=== PATIENT | male | born 1955 | race Caucasian/White ===

== ENCOUNTER 2019-09-06 05:14 | Inpatient (IN) | payer MEDICAID, OTHER ==
[2019-09-06] VITALS (51 sets, daily range): BP systolic 79–135; BP diastolic 34–88
[~2019-09-06] VITALS: Ht 190.5 cm; Wt 117.5 kg
[2019-09-06] MEDS ORDERED: SUCCINYLCHOLINE CHLORIDE 20 MG/ML 10ML VIAL IV ONE ×4 (05:35→07:45)
[2019-09-06] MEDS ORDERED: ETOMIDATE (2MG/ML) 20ML VIAL IV ONE ×2 (05:35→05:45)
[2019-09-06] MEDS ORDERED: MIDAZOLAM DRIP 50 mg/50mL 50 ML IV ONE (05:45)
[2019-09-06] MEDS ORDERED: VANCOMYCIN PER PHARMACY 1,000 MG IV SCH (06:00)
[2019-09-06] MEDS ORDERED: SODIUM CHLORIDE 0.9% 500 ML IV ONE (06:00)
[2019-09-06] MEDS: PIPERACILLIN-TAZOB 3.375GM 100 ML IV SCH ×3 (06:45→17:35)
[2019-09-06] MEDS: MIDAZOLAM DRIP 50 mg/50mL 50 ML IV SCH ×5 (06:47→20:00)
[2019-09-06] MEDS ORDERED: FUROSEMIDE 40 MG/4 ML VIAL IV ONE ×2 (07:15→12:00)
[2019-09-06] MEDS ORDERED: NOREPINEPHRINE 8 MG/250ML KIT 250 ML IV ONE (07:22)
[2019-09-06 07:41] LABS: Urine Bacteria NONE SEEN /hpf (None Seen); Urine Blood Negative /uL (Negative); Urine Hyaline Cast MANY /lpf (0 - 2); Urine Mucus FEW (None Seen); Urine Specific Gravity 1.024 (1.001-1.035); Urine WBC 6 /hpf (0 - 3)
[2019-09-06] MEDS: PROPOFOL 100 ML IV SCH ×4 (07:54→20:00)
[2019-09-06] MEDS: NOREPINEPHRINE 8 MG/250ML KIT 250 ML IV SCH ×2 (07:55→16:43)
[2019-09-06 08:15] LABS: Lactic Acid w/Reflex 6.5 mmol/L (0.4-2.0)
[2019-09-06] MEDS ORDERED: VANCOMYCIN PER PHARMACY 0 MG IV SCH (08:45)
[2019-09-06] MEDS ORDERED: MORPHINE SULF INJ 2 MG/ML SYRINGE 1ML IV PRN (08:45)
[2019-09-06] MEDS ORDERED: NITROGLYCERIN 0.4 MG SL TAB SL PRN (08:45)
[2019-09-06] MEDS ORDERED: methylPREDNISolone SOD SUCC 125 MG/2 ML VL IV ONE (09:00)
[2019-09-06] MEDS ORDERED: VANCOMYCIN 1,250 MG in D5W 5% 250 ML IV ONE ×2 (09:00→10:00)
[2019-09-06 09:01] LABS: White Blood Cell 9.8 10^3/uL (4.4-10.8)
[2019-09-06 09:03] LABS: Hematocrit 42.5 % (41.0-53.0); Hemoglobin 13.9 g/dL (13.5-17.5); Mean Corpuscular Hemoglobin 36.3 pg (28.0-32.0); Mean Corpuscular Hgb Conc. 32.8 g/dL (32.0-36.0); Mean Corpuscular Volume 110.9 fL (80.0-100.0); Platelet Count (auto) 112 10^3/uL (140-450); Red Blood Cells 3.84 10^6/uL (4.5-5.90); Red Cell Distribution Width 13.4 % (11.8-14.3)
[2019-09-06 09:12] LABS: Basophils % (manual) 0 (0.0-2.0); Blast Cells 0; Eosinophils % (manual) 0 (0-7); Metamyelocytes % 0; Myelocytes % 0; Promyelocytes % 0; Reactive Lymphocytes 0
[2019-09-06] MEDS: FAMOTIDINE (10MG/ML) 2ML VL IV SCH ×2 (09:21→22:44)
[2019-09-06 09:23] LABS: Calcium 7.4 mg/dL (8.5-10.1); Potassium 5.2 mmol/L (3.5-5.1)
[2019-09-06 09:28] LABS: BUN/Creatinine Ratio 5.6; Bilirubin, Total 3.5 mg/dL (0.2-1.0); Total Protein 6.3 g/dL (6.4-8.2)
[2019-09-06 09:36] LABS: Band Neutrophils % (manual) 9; Lymphocytes % (manual) 8 (10.0-50.0); Monocytes % (manual) 4 (0-12)
[2019-09-06 09:50] LABS: INR 2.03 (0.9-1.15)
[2019-09-06] MEDS: IPRATROPIUM BROM 0.5 MG/2.5ML INH SOL NEB SCH ×4 (10:00→22:10)
[2019-09-06] MEDS ORDERED: CALCIUM GLUC 4.65meq/50ml D5AE 50 ML IV ONE (10:00)
[2019-09-06] MEDS ORDERED: DEXTROSE (50%) 50ML SYRG IV ONE (10:00)
[2019-09-06] MEDS ORDERED: SODIUM ZIRCONIUM CYCL 10 GM PAK PO ONE (10:00)
[2019-09-06] MEDS ORDERED: ALBUTEROL SULF 2.5 MG/0.5ML(0.5%) NEB SOLN NEB ONE (10:00)
[2019-09-06] MEDS ORDERED: InsuLIN REG 1unit/0.01ml Soln (100units/ml) IV ONE (10:00)
[2019-09-06] MEDS: ALBUTEROL SULF 2.5 MG/0.5ML(0.5%) NEB SOLN NEB SCH ×4 (10:00→22:10)
[2019-09-06] MEDS: ENOXAPARIN SOD 40 MG/0.4 ML SYRINGE SC SCH (10:02)
[2019-09-06] MEDS ORDERED: IOHEXOL 350 MG/ML 100ML IJ ONE (10:06)
[2019-09-06 10:59] LABS: Lactic Acid w/Reflex 4.5 mmol/L (0.4-2.0)
[2019-09-06] MEDS ORDERED: IPRATROPIUM BROM 0.5 MG/2.5ML INH SOL NEB SCH (12:00)
[2019-09-06] MEDS ORDERED: ALBUTEROL SULF 2.5 MG/0.5ML(0.5%) NEB SOLN NEB SCH (12:00)
[2019-09-06] MEDS ORDERED: PIPERACILLIN-TAZOB 3.375GM 100 ML IV SCH (12:00)
--- NOTE | 2019-09-06 12:05 | NUR ---
DR KAPOOR AT BEDSIDE: INCREASE PEEP TO 10 AND MONITOR END C02.
--- NOTE | 2019-09-06 12:15 | NUR ---
Admit to ICU from ER on vent NEO MAYA admitted to ICU via gurney on bus monitor, intubated and being bagged by Respiratory Therapist. Patient transfered to bed, connected to mechanical ventilator by therapist, PONCHO at bedside. Patient connected to ICU monitoring, weighed by bedscale, unresponsive unable to orient to Shaista frye RN, unit, ventilator and sedation. NOTE: Report received from ABRAM Bunch,. See Interventions for further patient details.
--- NOTE | 2019-09-06 12:30 | NUR ---
Trop and MRSA swab sent to lab.
--- NOTE | 2019-09-06 14:18 | NUR ---
Consulted Dr. Walker for A-line placement.
--- NOTE | 2019-09-06 14:28 | NUR ---
Urine toxicology ordered and sent to lab.
[2019-09-06 15:06] LABS: Amphetamine Screen, Urine NEGATIVE (NEGATIVE); Barbiturate Scree,Urine NEGATIVE (NEGATIVE); Benzodiazephine Screen, Urine NEGATIVE (NEGATIVE); Cannabinoid Screen, Urine POSITIVE (NEGATIVE); Cocaine Screen, Urine NEGATIVE (NEGATIVE)
[2019-09-06 15:13] LABS: Opiate Scree,Urine NEGATIVE (NEGATIVE); Phencyclidine Screen, Urine NEGATIVE (NEGATIVE)
--- NOTE | 2019-09-06 18:55 | NUR ---
Endorsed care to ABRAM Rick.
--- NOTE | 2019-09-06 20:00 | NUR ---
ADMITTED FROM HOME TO ER. INTUBATED IN FIELD. FOUND DOWN AT HOME BY FAMILY. WAS HYPOTHERMIC AND LOW SATURATION. LIVES ON THE SAME PROPERTY HIS SON. MARTHA. NO GAG OR COUGH. ORAL CARE. NOTHING SUCTIONED FROM THE ETT. ORALLY INTUBATED. ORAL NGT. ETT TO VENTILATOR. LUNGS CLEAR. ON 100% FIO2. O2 SAT IS 93%. TEMP 97.6 ORALLY. SHEET AND BLANKET ON. DOES NOT WITHDRAW TO PAINFUL STIMULI. OBESE. ABDOMEN VERY LARGE, ROUND AND SLIGHTLY FIRM. MENEZES IN PLACE DRAINING CLEAR YELLOW LIQUID TO DOWN DRAIN BAG. MOISTURE ASSOCIATED DERMATITIS IN GROIN FOLDS AND GLUTEAL CLEFT. BILATERAL LEG EDEMA. REDNESS AND HYPERPIGMENTATION ON LEGS. RIGHT MID CALF IS AN OPEN DRAINING WOUND. NO SCDS. PULSES WEAK AND PALPABLE. ALL EXTREMITIES ARE WARM. ALSO BACK HAS A RED HARD CELLULITIC LOOK OVER APPROXIMATELY 60-70% OF HIS BACK. PREVENTATIVE OPTIFOAM ON COCCYX.
--- NOTE | 2019-09-06 21:43 | NUR ---
WOUND CULTURE DONE OF THE SMALL OPEN WOUND ON THE RIGHT CALF. AREA CLEANED WITH CHLOROPREP AND DRESSED WITH A FOAM DRESSING.
--- NOTE | 2019-09-06 22:00 | NUR ---
TIP OF PENIS IS RED. BOTH GROINS ARE RED. CLEANED WITH CHG WIPES AND PLACED A PILLOW CASE IN GROIN FOLDS. PANUS IS ALSO RED. CLEANED AND DRIED. PILLOWCASE PLACED IN THE PANUS FOLD. ABDOMEN IS VERY RED AND HARD ON THE RIGHT SIDE.
[2019-09-07] VITALS (100 sets, daily range): BP systolic 90–132; BP diastolic 35–87
--- NOTE | 2019-09-07 | NUR ---
REPOSITIONED. NSR WITHOUT ECTOPY. LUNGS CLEAR. MOVED THE PULSE OX FROM THE FINGER TO THE EAR AND IT WENT FROM 90 TO 96%. ORAL CARE. NGT DRAINING RILEY LIQUID IN SMALL AMOUNTS. MENEZES DRAINING RILEY LIQUID TO DOWN DRAIN BAG. TEMP ONLY 97.6 . ADDED 2 BLANKETS. DECREASED THE LEVOPHED TO 3 MCG. DECREASED THE DIPRIVAN. NO MOVEMENT OF EXTREMITIES. NO GAG OR COUGH.
[2019-09-07] MEDS: PIPERACILLIN-TAZOB 3.375GM 100 ML IV SCH ×5 (00:02→23:45)
[2019-09-07] MEDS: MIDAZOLAM DRIP 50 mg/50mL 50 ML IV SCH ×2 (00:03→12:36)
--- NOTE | 2019-09-07 01:23 | NUR ---
DIFFICULTY GETTING AN ORAL OR AXILLARY TEMP. WALLY GALVAN STARTED ON MEDIUM HEAT.
--- NOTE | 2019-09-07 02:01 | NUR ---
ORAL TEMP REGISTERING NOW AT 97.5. NSR WITHOUT ECTOPY. SBP 100 ON LEVOPHED AT 3 MCG/MIN. VERSED DECREASED. STILL NO COUGH OR GAG.
[2019-09-07] MEDS: PROPOFOL 100 ML IV SCH ×3 (02:08→17:52)
[2019-09-07] MEDS: ALBUTEROL SULF 2.5 MG/0.5ML(0.5%) NEB SOLN NEB SCH ×6 (02:10→22:19)
[2019-09-07] MEDS: IPRATROPIUM BROM 0.5 MG/2.5ML INH SOL NEB SCH ×6 (02:10→22:19)
--- NOTE | 2019-09-07 04:00 | NUR ---
WALLY GALVAN ON. TEMP SLOWLY COMING UP. NO GAG OR COUGH. DECREASING VERSED. LEVOPHED IS TITRATED DOWN FAR I CAN GO. NSR WITHOUT ECTOPY.
[2019-09-07 04:30] LABS: Basophils # (auto) 0 uL; Basophils % (auto) 0.1 % (0.0-2.0); Eosinophils # (auto) 0 uL; Hemoglobin 13.9 g/dL (13.5-17.5); Lymphocytes # (auto) 0.3 uL; Lymphocytes % (auto) 4.1 % (10.0-50.0); Mean Corpuscular Hemoglobin 37.1 pg (28.0-32.0); Mean Corpuscular Hgb Conc. 34.9 g/dL (32.0-36.0); Mean Corpuscular Volume 106.3 fL (80.0-100.0); Monocytes # (auto) 0.5 uL; Monocytes % (auto) 5.8 % (0.0-12.0); Neutrophils # (auto) 7.6 uL; Nucleated Red Blood Cells % 0.1 %; Platelet Count (auto) 87 10^3/uL (140-450); Red Blood Cells 3.76 10^6/uL (4.5-5.90); Red Cell Distribution Width 12.9 % (11.8-14.3); White Blood Cell 8.4 10^3/uL (4.4-10.8)
[2019-09-07 04:45] LABS: INR 2.23 (0.9-1.15); Partial Thromboplastin Time 51.3 sec (23.64-32.05)
[2019-09-07 04:51] LABS: Albumin 1.8 g/dL (3.4-5.0); Anion Gap 7 (5-15); Aspartate Aminotransferase 41 U/L (15-37); Blood Urea Nitrogen 12 mg/dL (7-18); Calcium 7.6 mg/dL (8.5-10.1); Carbon Dioxide 30 mmol/L (21-32); Chloride 87 mmol/L (98-107); Glucose 149 mg/dL (74-106); Magnesium 1.6 mg/dL (1.6-2.6); Potassium 4.3 mmol/L (3.5-5.1); Sodium 124 mmol/L (136-145)
[2019-09-07 04:56] LABS: Alanine Aminotransferase 30 U/L (16-61); Alkaline Phosphatase 83 U/L (45-117); BUN/Creatinine Ratio 9.8; Bilirubin, Total 2.2 mg/dL (0.2-1.0); Cholesterol < 50 mg/dL (< 200); GFR African American 76 mL/min; GFR Non-African American 63 mL/min; HDL Cholesterol 11 mg/dL (40-59); LDL Cholesterol 37 mg/dL (< 100); Total Protein 5.4 g/dL (6.4-8.2); Triglycerides 71 mg/dL (< 150)
--- NOTE | 2019-09-07 05:41 | NUR ---
TEMP 98.3. WALLY GALVAN TEMP TURNED DOWN TO MEDIUM AND LEFT ON.
--- NOTE | 2019-09-07 06:29 | NUR ---
TEMP 98.3 ORALLY. WALLY GALVAN ON. REPOSITIONED TO THE LEFT SIDE. SBP STABLE. DR ZAMARRIPA HERE TO INSERT ARTERIAL LINE.
--- NOTE | 2019-09-07 07:35 | NUR ---
OPENING SHIFT NOTE Report received from Merline VALVERDE, care assumed. Patient observed in bed. No distress or pain noted at this time. Diprivan and Versed used for sedation. Afebrile, rectal temperature in place for continuos monitoring. pupils are equal and reactive to light. Cough and gag noted. Pulses palpable radial and pedal bilaterally. Pitting edema noted. Vital signs stable. Patient on low dose levophed gtt for hemodynamic stability. Intubated on ventilator, lungs coarse anteriorly. Tolerating ventilation at this time with oxygen saturation 99%. Thick creamy red sputum noted during ET tube suctioning. Ventilator connected to red outlet with Ambu bag at bedside. Abdomen is large, soft, non-tender. Bowel sounds hypoactive. Poe catheter present, patent, and secured below bladder. See skin/wound assessment performed. Partial bed bath and linen change complete. SCD placed on left lower extremity. Bilateral heels off loaded on pillows. Bed locked in lowest position, alarms in place. Will continue to monitor.
--- NOTE | 2019-09-07 08:50 | NUR ---
VISITOR Patient Daughter at bedside. Updated on plan of care. All questions and concerns addressed.
--- NOTE | 2019-09-07 09:00 | NUR ---
Respiratory note: SWITCHED PATIENT OVER TO HEATED CIRCUIT ON PREVIOUS SETTINGS WITHOUT ANY ADVERSE REACTIONS. WILL CONTINUE TO MONITOR PATIENT.
--- NOTE | 2019-09-07 10:00 | NUR ---
WOUND CARE Wound care nurses at bedside for skin assessment.
[2019-09-07] MEDS: ENOXAPARIN SOD 40 MG/0.4 ML SYRINGE SC SCH (10:08)
[2019-09-07] MEDS: FAMOTIDINE (10MG/ML) 2ML VL IV SCH ×2 (10:08→22:12)
--- NOTE | 2019-09-07 10:20 | NUR ---
MD VISIT at bedside assessing patient. MD made ventilator changes, RT notified. MD reviewing chart. Orders received. Will continue to monitor.
--- NOTE | 2019-09-07 10:44 | NUR ---
Respiratory note: VENT SETTINGS CHANGED PER DR. KAPOOR. VENT SETTINGS ARE NOW AC 20/550/+12/80%. PATIENT IS TOLERATING CHANGE WELL. WILL DRAW ABG IN ONE HOUR. WILL CONTINUE TO MONITOR. ABRAM ANDERS IS AWARE OF CHANGES.
--- NOTE | 2019-09-07 11:05 | NUR ---
MD VISIT at bedside for Nephrology consult. Orders received.
[2019-09-07] MEDS ORDERED: SODIUM CHLORIDE 0.9% 1,000 ML IV SCH (11:15)
--- NOTE | 2019-09-07 12:12 | NUR ---
Respiratory note: VENTILATOR CHANGES MADE PER DR. KAPOOR. DECREASED RR TO 16, PATIENT IS TOLERATING CHANGES WELL. ABG TO FOLLOW IN 2 HOURS, ABRAM ANDERS IS AWARE.
--- NOTE | 2019-09-07 12:34 | NUR ---
LEVOPHED GTT Levophed gtt titrated off, blood pressure hemodynamically stable at this time. Will continue to monitor.
--- NOTE | 2019-09-07 12:40 | NUR ---
MD VISIT at bedside assessing patient. MD updated on ventilator changes, IV medications, and plan of care. MD reviewing chart.
[2019-09-07] MEDS ORDERED: THIAMINE 100mg/ml INJ (200mg/2ml VIAL) IV ONE (13:30)
--- NOTE | 2019-09-07 13:51 | NUR ---
Assessment Pt is a 63 yr old intubated male. Pt's granddaughter, Sarah, was bedside and answered questions on pt's behalf. Pt's son, Arie, is his emergency contact at [phone]. Prior to admit, pt lived alone but on the same property of his son. Prior to admit, pt was ambulatory, and was independent with ADL's, cooking and cleaning. Granddaughter was unsure of pt's income source or whether the pt had an advanced directive on file. Pt's nurse stated that pt was a . No needs assessed currently. SW will further assess for needs closer to d/c. Addendum: 09/07/19 at 1357 by SHADIA BEATTY Amended: Links added.
--- NOTE | 2019-09-07 15:24 | NUR ---
FAMILY UPDATE Patients son-in-law called for update.
[2019-09-07] MEDS: methylPREDNISolone SOD SUCC 40 MG/ML VL IV SCH ×2 (15:30→22:12)
--- NOTE | 2019-09-07 16:00 | NUR ---
ROUNDING NOTE Patient resting, no distress noted. Oral care performed. Vitals stable. Will continue to monitor.
[2019-09-07] MEDS: VANCOMYCIN 1,500 MG in D5W 5% 250 ML IV SCH (16:02)
[2019-09-07] MEDS ORDERED: CARVEDILOL 3.125 MG TAB GT ONE (17:15)
[2019-09-07] MEDS ORDERED: FUROSEMIDE 20 MG/2 ML VIAL IV ONE (17:15)
--- NOTE | 2019-09-07 18:14 | NUR ---
VISITOR Patient son Arie at bedside. Updated on plan of care.
[2019-09-07 18:38] LABS: BUN/Creatinine Ratio 11.5; Calcium 7.5 mg/dL (8.5-10.1); Potassium 4.9 mmol/L (3.5-5.1)
--- NOTE | 2019-09-07 20:15 | NUR ---
OPENING NOTE: INTUBATED AND ON SEDATION. UNRESPONSIVE. ABSENT GAG AND COUGH. NSR, HR 60s. SBP 90s, LARGEST BP CUFF ON BUT FITS WITHIN PARAMETERS. 8.0 ETT, 27 AT THE LIP. LS COARSE WITH INSPIRATORY AND EXPIRATORY WHEEZE THROUGHOUT. CREAMY ORAL AND ETT SECRETIONS. SpO2 > 88% ON CURRENT VENT SETTINGS. ABD ROUND, OBESE, AND SOFT. HYPOACTIVE BS. UNKNOWN LBM. OGT TO LIS, +AIR BOLUS, THICK BILIOUS OUTPUT. MENEZES PATENT AND INTACT, DRAINING LIGHT RILEY URINE, SCROTUM EDEMATOUS. ERYTHEMA NOTED FROM RIGHT FOOT ALL THE WAY UP TO RIGHT BREAST AND ACROSS ABDOMEN ALSO WITH CONTACT DERMATITIS RELATED TO MOISTURE IN INTERTRIGINOUS AREAS OF PANNUS, THIGHS, AND GROIN. SEE WOUND AND SKIN FLOWSHEET . 2+ PITTING EDEMA,GENERALIZED EDEMA. BILATERAL AC 18 G PIV, CDI, AND PATENT WITH BLOOD RETURN. 20 G PIV TO LEFT HAND, CDI, AND PATENT WITH BLOOD RETURN. TLC TO LEFT SC, CDI, AND PATENT WITH BLOOD RETURN. NO FAMILY PRESENT AT THIS TIME. REINFORCED POC. MAINTAINED PATIENT SAFETY: BED LOCKED AND IN THE LOWEST POSITION, FREQUENT VISUAL CHECKS. WILL CONT CARE.
--- NOTE | 2019-09-07 21:00 | NUR ---
SEDATION VACATION: WEANING SEDATION SLOWLY. DO NOT WANT ABRUPTLY AROUSE PATIENT DUE TO 12+ PEEP SETTING. WILL REASSESS APPROPRIATENESS OF SEDATION. Addendum: 09/07/19 at 2122 by Caitlin Thurman RN RN Amended: Links added.
[2019-09-07] MEDS ORDERED: FUROSEMIDE 20 MG/2 ML VIAL IV SCH (22:00)
[2019-09-07] MEDS: CARVEDILOL 3.125 MG TAB GT SCH (22:12)
--- NOTE | 2019-09-07 22:41 | NUR ---
DR. IRVIN CALLED CLARIFIER OPERATOR HELPER - ORDERS FOR 60 MG LASIX IN ADDITION TO 20 MG LASIX GIVEN BY DAY SHIFT
[2019-09-08] VITALS (84 sets, daily range): BP systolic 97–129; BP diastolic 3–79
[2019-09-08] MEDS: IPRATROPIUM BROM 0.5 MG/2.5ML INH SOL NEB SCH ×6 (02:04→22:07)
[2019-09-08] MEDS: ALBUTEROL SULF 2.5 MG/0.5ML(0.5%) NEB SOLN NEB SCH ×6 (02:04→22:07)
[2019-09-08] MEDS: VANCOMYCIN 1,500 MG in D5W 5% 250 ML IV SCH ×2 (03:48→16:45)
[2019-09-08 04:31] LABS: Basophils # (auto) 0 uL; Basophils % (auto) 0.3 % (0.0-2.0); Eosinophils # (auto) 0 uL; Monocytes # (auto) 0.4 uL
--- NOTE | 2019-09-08 04:32 | NUR ---
BED BATH WITH CHG WIPES, IKE CARE, MENEZES CARE, ORAL CARE, HAIR CARE, AND FULL LINEN CHANGE COMPLETED
[2019-09-08 04:34] LABS: Hematocrit 39.4 % (41.0-53.0); Hemoglobin 13.6 g/dL (13.5-17.5); Lymphocytes # (auto) 0.3 uL; Lymphocytes % (auto) 3.9 % (10.0-50.0); Mean Corpuscular Hemoglobin 36.7 pg (28.0-32.0); Mean Corpuscular Hgb Conc. 34.6 g/dL (32.0-36.0); Mean Corpuscular Volume 106.2 fL (80.0-100.0); Monocytes % (auto) 5.9 % (0.0-12.0); Neutrophils # (auto) 5.9 uL; Neutrophils % (auto) 89.9 % (37.0-80.0); Platelet Count (auto) 73 10^3/uL (140-450); Red Blood Cells 3.71 10^6/uL (4.5-5.90); Red Cell Distribution Width 13.4 % (11.8-14.3); White Blood Cell 6.6 10^3/uL (4.4-10.8)
[2019-09-08 04:37] LABS: INR 1.72 (0.9-1.15)
[2019-09-08 04:52] LABS: Albumin 1.8 g/dL (3.4-5.0); Calcium 7.4 mg/dL (8.5-10.1); Magnesium 1.8 mg/dL (1.6-2.6); Potassium 4.6 mmol/L (3.5-5.1)
[2019-09-08 05:01] LABS: Bilirubin, Total 1.8 mg/dL (0.2-1.0); Total Protein 5.7 g/dL (6.4-8.2)
--- NOTE | 2019-09-08 05:23 | NUR ---
TEMP DOWN TO 97f RECTALLY - PLACED PETROS HUGGER
--- NOTE | 2019-09-08 06:00 | NUR ---
TEMP NOW 97.7f RECTALLY
[2019-09-08] MEDS: PIPERACILLIN-TAZOB 3.375GM 100 ML IV SCH ×3 (06:32→18:56)
[2019-09-08] MEDS: methylPREDNISolone SOD SUCC 40 MG/ML VL IV SCH ×2 (06:32→22:02)
[2019-09-08] MEDS: NOREPINEPHRINE 8 MG/250ML KIT 250 ML IV SCH (06:32)
--- NOTE | 2019-09-08 07:42 | NUR ---
REPORT AND CARE ENDORSED TO ABRAM ANDREWS
--- NOTE | 2019-09-08 07:42 | NUR ---
REPORT REPORT RECEIVED FROM MARIO RNELIF. BEDSIDE CHECK DONE.
--- NOTE | 2019-09-08 08:01 | NUR ---
ASSESSMENT PT LAYING IN BED WITH EYES CLOSED, SEDATED WHILE ON THE VENTILATOR. VENT SETTINS OF : 8 FR ETT/27 AT THE LIP, AC 16, TV 550, 60% FIO2 AND PEEP OF 12. LUNGS CLEAR THROUGHOUT. O2 SAT OF 92% AND SAT OF 92%. TELE SR 66 WITH INVERTED T WAVE IN LEAD AVR AND ELEVATED ST IN LEAD V. WEAK PALPABLE PULSES TO ALL EXTREMITIES. SCD TO LEFT LEG AND OPTIFOAM DRESSING TO RIGHT GAO OVER SEALED SKIN TEAR. +2 PITTING EDEMA NOTED TO BOTH HANDS. ABD SOFT WITH HYPOACTIVE BOWEL SOUNDS. OGT WITH PLACEMENT VERIFIED BY AUSCULTATION AND CONNECTED TO LIS WITH YELLOWISH BROWN CLEAR FLUID DRAINING. LAST BM WAS PRIOR TO ADMISSION AND UNKNOWN. MENEZES CATHETER DRAINING CLEAR YELLOW URINE. CONTACT DERMATITIS NOTED TO ABD PANNUS AND ANTIFUNGAL CREAM AND PILLOWCASE APPLIED AFTER CLEANED WITH SOAP AND WATER. CALLOUSES NOTED TO BOTH FEET AND ELBOWS. OOZING NOTED FROM RIGHT WRIST AND OPTIFOAM DRESSING IN PLACE. PT WITH SL X2 TO THE LAC/RAC, PLACED 09/07. LSC TLC WITH SITE BENIGN AND PLACED /. TURNED FOR COMFORT. CONTINUE TO MONITOR.
--- NOTE | 2019-09-08 08:30 | NUR ---
DR KAPOOR AT THE BEDSIDE FOR BRONCHOSCOPY.
[2019-09-08] MEDS ORDERED: LIDOCAINE 2%HCL (LOCAL ANESTH.) INJ 20ML MDV ONE (08:46)
[2019-09-08] MEDS ORDERED: LIDOCAINE HCL 2% TOP JELLY 5ML TOP ONE (08:47)
[2019-09-08] MEDS ORDERED: EPINEPHrine HCL 1 MG/1 ML AMP ONE (08:47)
[2019-09-08] MEDS ORDERED: SODIUM CHLORIDE LOCK 10 ML ONE (08:47)
[2019-09-08] MEDS ORDERED: MIDAZOLAM HCL 5 MG/ML-1ML VIAL ONE (08:48)
[2019-09-08] MEDS ORDERED: fentaNYL CITRATE 100 MCG/2 ML VL ONE (08:48)
--- NOTE | 2019-09-08 09:00 | NUR ---
SEDATION VACATION PT OFF ALL SEDATION SINCE MATHEMATICAL TECHNICIAN. Addendum: 09/08/19 at 1726 by Callie Abraham RN Amended: Links added.
[2019-09-08] MEDS ORDERED: ACETYLCYSTEINE 10 %(100MG/ML) SOL 4ML ONE (09:12)
[2019-09-08] MEDS ORDERED: ACETYLCYSTEINE 20%(200MG/ML) SOL 4ML ONE (09:12)
--- NOTE | 2019-09-08 09:42 | NUR ---
BRONCHOSCOPY COMPLETED AND PT FOUND TO "HAVE GREENISH YELLOW SECRETIONS FROM TRACHEA AND LEFT AND RIGHT MAIN STEM BRONCHUS ONWARD". HE CALLED AND SPOKE WITH THE PT'S SON, VERONICA, TO UPDATE HIM. PT CURRENTLY ON 100% FIO2. CONTINUE TO MONITOR.
[2019-09-08] MEDS: CARVEDILOL 3.125 MG TAB GT SCH ×2 (10:00→22:00)
[2019-09-08] MEDS ORDERED: FUROSEMIDE 20 MG/2 ML VIAL IV SCH (10:00)
[2019-09-08] MEDS: THIAMINE 100mg/ml INJ (200mg/2ml VIAL) IV SCH (10:17)
[2019-09-08] MEDS: FAMOTIDINE (10MG/ML) 2ML VL IV SCH ×2 (10:18→22:02)
[2019-09-08] MEDS: ENOXAPARIN SOD 40 MG/0.4 ML SYRINGE SC SCH (10:18)
[2019-09-08] MEDS: FUROSEMIDE 20 MG/2 ML VIAL IV SCH ×2 (10:18→22:03)
[2019-09-08] MEDS ORDERED: MAGNESIUM SULFATE 1GM/100ML 100 ML IV ONE (11:00)
--- NOTE | 2019-09-08 11:58 | NUR ---
NUTRITION CONSULT/ASSESSMENT NOTES Please refer to link notes of nutrition screen form filed under the intervention section of the plan of care for further details. Est. Needs based on AdBW (107 kg): 2150 kcal to 2450 kcal (20-23 kcal/kgAdBW),107 gms to 128 gms pro (1.0-1.2 gms/kgAdBW). Will continue to monitor pertinent labs and reassess nutrient need prn Thank you for this consult. Addendum: 09/08/19 at [address] Amended: Links added.
--- NOTE | 2019-09-08 15:20 | NUR ---
TO CT SCAN VIA BED WITH PORTABLE SHUTTLE FITTING SUPERVISOR AND PORTABLE VENTILATOR IN USE. ACCOMPANIED BY AALIYAH SANCHEZ RN, AND RT SVEN.
--- NOTE | 2019-09-08 15:33 | NUR ---
PT WAS TRANSPORTED TO CT WITH TRANSPORT VENT WITH NO INCIDENT REPORTED. AMBUBAG ATTACHED TO O2 TANK WITH PEEP VALVE. SPO2 90%, HR 72 NO DISTRESS NOTED.
--- NOTE | 2019-09-08 16:10 | NUR ---
BACK TO ROOM AND CONNECTED TO BEDSIDE MONITORING AND VENTILATOR.
[2019-09-08] MEDS ORDERED: ASPirin 81 mg TAB GT ONE (16:45)
--- NOTE | 2019-09-08 18:30 | NUR ---
RECEIVED A TOTAL CARE BARIATRIC BED AND WITH ASSISTANCE TRANSFERRED PT TO THE NEW BED. TOLERATED WELL BY THE PT.
--- NOTE | 2019-09-08 19:40 | NUR ---
BEDSIDE REPORT GIVEN TO MARIO RNTRACY.
--- NOTE | 2019-09-08 20:00 | NUR ---
ADMITTED AFTER BEING FOUND DOWN AT HOME. INTUBATED AND BROUGHT HERE. OFF LEVOPHED AND SEDATION. BNP ELEVATED. NOW ON ROUND THE CLOCK LASIX. NO MAINTENANCE IV. BEGINNING TO WAKE UP WITH STIMULATION. WILL OPEN EYES AND MOVE ARMS. + COUGH AND GAG. ORAL CARE. ORALLY INTUBATED. ORAL NGT TO LIS. NGT DRAINING AN RILEY LIQUID. TEMP 97.6. RECTAL PROBE INACCURATE. WARMING BLANKET PUT ON. NSR WITHOUT ECTOPY. SBP STABLE. FOLLOWING VENTILATOR AC BREATHS. RECENT INCREASE TO 70% FIO2. O2 SAT PROBE ON FINGER READING 91-92%. PLACED O2 SAT PROBE ON EAR, IT IS READING 96-97%. NOTHING SUCTIONED FROM THE ETT. LUNGS CLEAR. ABDOMEN OBESE, ROUND, SOFT AND SKIN IS RED AND HARD ON THE RIGHT SIDE. MENEZES IN PLACE DRAINING CLEAR YELLOW LIQUID TO DOWN DRAIN BAG. GENERALIZED 2 + PITTING EDEMA. ALL PULSES WEAK. ALL EXTREMITIES ARE WARM. TRIPLE LUMEN CVC IN THE LEFT SUBCLAVIAN, DRESSING CHANGED WITH NEW BIOPATCH. SITE SHOWED SOME OLD BLOOD. HAS 3 PERIPHERAL IVS THAT ARE NOT IN USE. ALL FLUSHED WITH NORMAL SALINE. NO REDNESS, SWELLING, OR DRNG FROM THE SITES. SCD ON LEFT LEG ONLY. MID CALF ON THE RIGHT IS A SMALL SCABBED WOUND. REMOVED THE DRESSING. CLEANED THE SITE WITH CHLOROPREP AND REDRESSED IT WITH A FOAM DRESSING. WOUND AND RESPIRATORY CULTURE ARE POSITIVE. ON ANTIBIOTICS.
--- NOTE | 2019-09-08 21:00 | NUR ---
PTT WITHIN RANGE , NO CHANGE
--- NOTE | 2019-09-08 21:01 | NUR ---
MISTAKEN PREVIOUS ENTRY
[2019-09-08 21:26] LABS: BUN/Creatinine Ratio 20.7; Calcium 7.5 mg/dL (8.5-10.1); Potassium 4.3 mmol/L (3.5-5.1)
--- NOTE | 2019-09-08 22:00 | NUR ---
REPOSITIONED TO BACK. WOKE UP, EYES OPEN AND THEN FELL BACK TO SLEEP. MOVES ARMS TO PAINFUL STIMULI. ORAL CARE DONE. SUCTIONED ETT FOR NO SECRETIONS. LUNGS CLEAR. FIO2 RETURNED TO 65% PER RT. O2 SAT 96%. WALLY HUGGER ON. TEMP WITHIN RANGE. WARMING LEVEL : LOW. MENEZES DRAINING CLEAR YELLOW LIQUID TO DOWN DRAIN BAG. NSR WITHOUT ECTOPY.
[2019-09-08] MEDS: ACETYLCYSTEINE 20%(200MG/ML) SOL 4ML NEB SCH (22:07)
--- NOTE | 2019-09-08 23:00 | NUR ---
COREG HAD NO EFFECT ON HEART RATE OR BLOOD PRESSURE.
[2019-09-09] VITALS (13 sets, daily range): BP systolic 92–117; BP diastolic 62–75
[2019-09-09] MEDS: PIPERACILLIN-TAZOB 3.375GM 100 ML IV SCH ×2 (00:23→06:04)
[2019-09-09] MEDS: IPRATROPIUM BROM 0.5 MG/2.5ML INH SOL NEB SCH ×6 (02:01→21:34)
[2019-09-09] MEDS: ALBUTEROL SULF 2.5 MG/0.5ML(0.5%) NEB SOLN NEB SCH ×6 (02:01→21:35)
--- NOTE | 2019-09-09 02:13 | NUR ---
STABLE. WAKES UP WITH TURNING. RESISTS YOUR MOVING HIM. NSR WITHOUT ECTOPY. WALLY GALVAN ON. TEMP 98.5 AND HOLDING. GRIMACES, RESISTS HIS TEMPERATURE BEING TAKEN.
[2019-09-09] MEDS: VANCOMYCIN 1,500 MG in D5W 5% 250 ML IV SCH (03:45)
--- NOTE | 2019-09-09 04:00 | NUR ---
WOKE UP AND STARTED STIRRING AROUND. REMOVED ALL THE PERIPHERAL IVS. LEFT AC OOZING. FOAM DRESSING APPLIED. RIGHT RADIAL AREA IS OOZING A LARGE AMOUNT OF SERO-SANG DRNG. CHG BATH.LUNGS CLEAR. WOULD NOT QUIET DOWN UNTIL WE STOPPED TOUCHING HIM. MITTENS APPLIED.
[2019-09-09 04:10] LABS: Basophils # (auto) 0 uL; Eosinophils # (auto) 0 uL; Eosinophils % (auto) 0.1 % (0.0-7.0); Lymphocytes # (auto) 0.2 uL; Monocytes # (auto) 0.4 uL
[2019-09-09 04:15] LABS: Lymphocytes % (auto) 3.4 % (10.0-50.0); Mean Corpuscular Hemoglobin 37.2 pg (28.0-32.0); Mean Corpuscular Hgb Conc. 34.9 g/dL (32.0-36.0); Mean Corpuscular Volume 106.7 fL (80.0-100.0); Neutrophils # (auto) 5.9 uL; Neutrophils % (auto) 90.5 % (37.0-80.0); Nucleated Red Blood Cells % 0.1 %; Platelet Count (auto) 54 10^3/uL (140-450); Red Blood Cells 3.75 10^6/uL (4.5-5.90); Red Cell Distribution Width 13.1 % (11.8-14.3); White Blood Cell 6.5 10^3/uL (4.4-10.8)
[2019-09-09 04:28] LABS: Calcium 7.5 mg/dL (8.5-10.1); Potassium 4.1 mmol/L (3.5-5.1)
--- NOTE | 2019-09-09 05:40 | NUR ---
CXR COMPLETED. PILLOW CASES IN GROIN TO PROTECT SKIN. RECTAL TEMP PROBE REMOVED. IT WASN'T WORKING.
[2019-09-09] MEDS: ACETYLCYSTEINE 20%(200MG/ML) SOL 4ML NEB SCH (05:47)
--- NOTE | 2019-09-09 06:38 | NUR ---
SUCTIONED A LARGE AMOUNT OF WHITE SECRETIONS AFTER RESPIRATORY TREATMENT. PIP WAS ONLY 25.QUIETED DOWN. NSR WITHOUT ECTOPY.
[2019-09-09] MEDS: NOREPINEPHRINE 8 MG/250ML KIT 250 ML IV SCH (07:15)
--- NOTE | 2019-09-09 07:50 | NUR ---
OPENING Report received from Merline VALVERDE. Care initiated and initial assessment completed. Patient is ventilated. Patient is awake and following commands, will alert MD.
--- NOTE | 2019-09-09 08:45 | NUR ---
PAGED Paged Dr. Benavides via office.
--- NOTE | 2019-09-09 08:50 | NUR ---
SPOKE TO MD Spoke to Dr. Benavides via cellphone. Per Dr. Benavides we will start mild sedation protocols as needed for the patient.
[2019-09-09] MEDS ORDERED: fentaNYL Drip 2500mCg/250mlNS 250 ML IV ONE (09:01)
--- NOTE | 2019-09-09 10:10 | NUR ---
BEDSIDE Dr. Benavides bedside.
[2019-09-09] MEDS: fentaNYL Drip 2500mCg/250mlNS 250 ML IV SCH ×2 (10:23→21:12)
[2019-09-09] MEDS: MIDAZOLAM HCL 1MG/1ML-2 ML VIAL IV PRN (10:24)
--- NOTE | 2019-09-09 10:40 | NUR ---
BEDSIDE Dr. Lynch bedside. No new orders received.
[2019-09-09] MEDS: FAMOTIDINE (10MG/ML) 2ML VL IV SCH ×2 (10:41→21:36)
[2019-09-09] MEDS: FUROSEMIDE 20 MG/2 ML VIAL IV SCH ×2 (10:43→21:37)
[2019-09-09] MEDS: methylPREDNISolone SOD SUCC 40 MG/ML VL IV SCH ×2 (10:43→21:37)
[2019-09-09] MEDS: ASPirin 81 mg TAB GT SCH (10:44)
[2019-09-09] MEDS: CARVEDILOL 3.125 MG TAB GT SCH ×2 (10:44→21:23)
[2019-09-09] MEDS: ENOXAPARIN SOD 40 MG/0.4 ML SYRINGE SC SCH (10:44)
[2019-09-09] MEDS: THIAMINE 100mg/ml INJ (200mg/2ml VIAL) IV SCH (10:52)
[2019-09-09] MEDS ORDERED: ACETYLCYSTEINE 20%(200MG/ML) SOL 4ML NEB SCH (11:00)
--- NOTE | 2019-09-09 12:00 | NUR ---
WOUND CARE NOTE: IN TO SEE PATIENT AT THIS TIME PER WOUND CARE CONSULT REQUEST. PATIENT WAS ADMITTED TO [facility] WITH DIAGNOSIS OF ACUTE RESPIRATORY FAILURE. CURRENT GLENNA SCORE IS 10. PATIENT REMAINS INTUBATED, SEDATED AT THIS TIME, RESTING ON TOTAL CARE BARIATRIC AIR BED. PATIENT'S BONY PROMINENCES ARE PINK, BLANCHABLE. NO OPEN OR DRAINING WOUNDS NOTED. CLOSED SKIN TEAR NOTED TO RIGHT GAO. THICK CALLOUSED SKIN NOTED TO BILATERAL ELBOWS/FEET. NO OTHER SKIN INTEGRITY ISSUES NOTED. SKIN/WOUND CARE PLAN HAS BEEN IMPLEMENTED. RECOMMEND: FREQUENT TURN SCHEDULE Q 2 HOURS, PRN CONDITION PERMITS, WITH PRESSURE REDISTRIBUTION USING PILLOWS/WEDGES, BID/PRN APPLICATION WITH MOISTURE BARRIER CREAM, OPTIFOAM GENTLE SACRAL DRESSING PREVENTATIVE, DIETARY CONSULT FOR LOW GLENNA, SKIN/WOUND CARE PLAN, CONTINUED MONITORING BY WOUND CARE TEAM.
--- NOTE | 2019-09-09 12:20 | NUR ---
WOUND CARE BEDSIDE
--- NOTE | 2019-09-09 13:00 | NUR ---
BEDSIDE Dr. Dominguez bedside. No new orders received. would like to know if primary wants to add any glucose products to patients medications. Will reach out to Dr. Lynch for clarification.
--- NOTE | 2019-09-09 13:25 | NUR ---
SPOKE TO Spoke to Dr. Lynch just moments after paging her, she does not wish to add any dextrose products at this time. All orders to remain as is.
[2019-09-09] MEDS: MEROPENEM 1GM IVPB 100 ML IV SCH ×2 (15:03→21:36)
[2019-09-09] MEDS: VANCOMYCIN 1,250 MG in D5W 5% 250 ML IV SCH (17:14)
--- NOTE | 2019-09-09 19:00 | NUR ---
CLOSING Report given to Merline VALVERDE.
--- NOTE | 2019-09-09 20:00 | NUR ---
PATIENT ADMITTED AFTER BEING FOUND DOWN AT HOME. INTUBATED AND BROUGHT TO ICU. ORALLY INTUBATED. ORAL NGT TO LIS DRAINING RILEY LIQUID. VERY LITTLE ORAL SECRETIONS. SUCTIONED ETT FOR A SMALL AMOUNT OF WHITE SECRETIONS. LUNGS CLEAR BILATERALLY. PULSE OX 97%. ABDOMEN ROUND AND SOFT. RIGHT SIDE OF ABDOMEN IS VERY RED WITH HARD SKIN. REDNESS ON BACK. BILATERAL GROINS ARE SLIGHTLY RED BUT IMPROVING. TIP OF PENIS WAS RED AND IS NOW IMPROVING. BILATERAL ARM AND LEG SWELLING. RIGHT RADIAL AREA IS OOZING SEROSANG FLUID FROM A PREVIOUS ABG SITE. FOAM DRESSING SATURATED, REMOVED . AREA CLEANED AND NEW FOAM DRESSING APPLIED. LEFT AC AREA IS ALSO LEAKING SEROSANG FLUID. FOAM DRESSING SOAKED. REMOVED DRESSING. CLEANED SITE AND REAPPLIED A NEW FOAM DRESSING. BILATERAL MITTENS ON. PATIENT WAKES UP WHEN YOU ARE NEAR HIM AND FLAILS HIS ARMS AND LOOKS AROUND. FENTANYL AT MAX DOSE. ENCOURAGED TO RELAX. ORIENTED TO SITUATION. BILATERAL LEG REDNESS. RIGHT WORSE THAN LEFT. SMALL OPEN DRAINING WOUND ON RIGHT MID CALF. DRESSING REMOVED. SITE CLEANED WITH CHLOROPREP AND REDRESSED WITH A FOAM DRESSING. LEFT SUBCLAVIAN TRIPLE LUMEN CATHETER SUTURED IN PLACE WITH CURRENT DRESSING AND BIOPATCH. LEFT LEG SCD. CUFF ON MELANIE. ALL PULSES PALPABLE. ALL EXTREMITIES ARE WARM. HEELS OFF BED. REPOSITIONED TO BACK. ORAL CARE DONE.
--- NOTE | 2019-09-09 21:43 | NUR ---
RT HERE. FIO2 DROPPED TO 50%. PEEP DROPPED TO 10. O2 SAT 95%. RR 16
--- NOTE | 2019-09-09 21:44 | NUR ---
COREG HELD, HR 53
--- NOTE | 2019-09-09 21:50 | NUR ---
Respiratory note: PEEP DECREASED TO [id number] PER DR. KAPOOR COMMUNICATION ORDER, PT TOLERATING WELL. WILL CONTINUE TO MONITOR.
--- NOTE | 2019-09-09 22:00 | NUR ---
DOING WELL ON 50% AND PEEP OF 10. O2 SAT 93%. REPOSITIONED PATIENT TO HIS RIGHT SIDE. ORAL CARE. LUNGS CLEAR. NOTHING SUCTIONED FROM THE ETT. WAKES UP EASILY. SINUS BRADYCARDIA 54. NO ECTOPY. SBP STABLE. IV SHOWS NO REDNESS OR SWELLING. LEFT ELBOW SCAB OOZING A SMALL AMOUNT OF SEROUS DRNG. NO BM YET. RR 21. GENERALIZED EDEMA PERSISTS.
[2019-09-10] VITALS (52 sets, daily range): BP systolic 94–131; BP diastolic 51–83
--- NOTE | 2019-09-10 | NUR ---
REPOSITIONED. SUCTIONED ETT FOR NO SECRETIONS . COMPLIANT WITH ORAL CARE. WRESTLES AROUND WHEN AWAKE AND THEN SETTLES EASILY. MITTENS REMAIN ON. MENEZES DRAINING CLEAR YELLOW LIQUID. LAC AND R WRIST OOZING AREAS SATURATED AGAIN. DRESSING REMOVED AND NEW FOAM DRESINGS APPLIED.
[2019-09-10] MEDS: IPRATROPIUM BROM 0.5 MG/2.5ML INH SOL NEB SCH ×6 (02:20→22:18)
[2019-09-10] MEDS: ALBUTEROL SULF 2.5 MG/0.5ML(0.5%) NEB SOLN NEB SCH ×6 (02:20→22:18)
--- NOTE | 2019-09-10 03:27 | NUR ---
AM LABS SENT
[2019-09-10 03:34] LABS: Basophils # (auto) 0 uL; Eosinophils # (auto) 0 uL; Hemoglobin 13.5 g/dL (13.5-17.5); Lymphocytes # (auto) 0.2 uL; Mean Corpuscular Hemoglobin 36.5 pg (28.0-32.0); Platelet Count (auto) 45 10^3/uL (140-450); Red Cell Distribution Width 13.5 % (11.8-14.3)
[2019-09-10 03:36] LABS: Basophils % (auto) 0.4 % (0.0-2.0); Eosinophils % (auto) 0.2 % (0.0-7.0); Hematocrit 39.3 % (41.0-53.0); Lymphocytes % (auto) 3.6 % (10.0-50.0); Mean Corpuscular Hgb Conc. 34.5 g/dL (32.0-36.0); Mean Corpuscular Volume 105.9 fL (80.0-100.0); Monocytes # (auto) 0.4 uL; Monocytes % (auto) 7.7 % (0.0-12.0); Neutrophils # (auto) 5.1 uL; Neutrophils % (auto) 88.1 % (37.0-80.0); Nucleated Red Blood Cells % 0.1 %; Red Blood Cells 3.71 10^6/uL (4.5-5.90); White Blood Cell 5.8 10^3/uL (4.4-10.8)
[2019-09-10 04:01] LABS: BUN/Creatinine Ratio 28.7; Calcium 7.8 mg/dL (8.5-10.1); Magnesium 2.1 mg/dL (1.6-2.6); Potassium 3.8 mmol/L (3.5-5.1)
[2019-09-10] MEDS: VANCOMYCIN 1,250 MG in D5W 5% 250 ML IV SCH ×2 (04:02→16:00)
[2019-09-10] MEDS: MEROPENEM 1GM IVPB 100 ML IV SCH ×3 (06:00→21:53)
--- NOTE | 2019-09-10 06:00 | NUR ---
WHEN HE WAKES UP, HE JUST STARTS MOVING ALL HIS EXTREMITIES, TRIES TO PULL OFF HIS MITTENS, LIFT HIS TORSO UP OFF THE BED. AND IF HE COULD HE WOULD GET OUT OF BED, BUT, WE STOP HIM. THEN HE GOES BACK TO SLEEP. SINUS BON 53-59. NO ECTOPY. GENERALIZED PITTING EDEMA PERSISTS. IV SITE SHOW NO REDNESS, SWELLING OR DRAINAGE. MENEZES DRAINING CLEAR YELLOW LIQUID TO DOWN DRAIN BAG.
--- NOTE | 2019-09-10 06:45 | NUR ---
FULL LINEN CHANGE. LEFT AC AREA HAS A NEW OPTIFOAM WITH KERLIX TO SECURE.
--- NOTE | 2019-09-10 07:30 | NUR ---
OPENING Received report from Merline VALVERDE. Care initiated and initial assessment completed.
--- NOTE | 2019-09-10 08:45 | NUR ---
FAMILY BEDSIDE Patients granddaughter, Omid, bedside. Updated on patients status.
--- NOTE | 2019-09-10 09:00 | NUR ---
FAMILY BEDSIDE Patients son Arie at the bedside.
[2019-09-10] MEDS: MIDAZOLAM HCL 1MG/1ML-2 ML VIAL IV PRN (09:13)
[2019-09-10] MEDS: ENOXAPARIN SOD 40 MG/0.4 ML SYRINGE SC SCH (10:00)
[2019-09-10] MEDS: FUROSEMIDE 20 MG/2 ML VIAL IV SCH ×2 (10:00→21:54)
[2019-09-10] MEDS: CARVEDILOL 3.125 MG TAB PO SCH ×2 (10:00→21:54)
[2019-09-10] MEDS: methylPREDNISolone SOD SUCC 40 MG/ML VL IV SCH ×2 (10:22→21:53)
[2019-09-10] MEDS: ASPirin 81 mg TAB GT SCH (10:22)
[2019-09-10] MEDS: FAMOTIDINE (10MG/ML) 2ML VL IV SCH ×2 (10:23→21:53)
[2019-09-10] MEDS: THIAMINE 100mg/ml INJ (200mg/2ml VIAL) IV SCH (10:23)
--- NOTE | 2019-09-10 10:25 | NUR ---
BEDSIDE Dr. Lynch bedside. No new orders at this time. Per Dr. Lynch, awaiting Dr. Benavides orders for possible CPAP.
--- NOTE | 2019-09-10 10:45 | NUR ---
DR BENAVIDES BEDSIDE Dr. Benavides bedside. CPAP in one hour post peep change (down to 8) if saturations maintain.
[2019-09-10] MEDS ORDERED: POTASSIUM EFFERVESENT TAB 25 MEQ PO ONE (11:00)
--- NOTE | 2019-09-10 11:05 | NUR ---
Nutrition Follow-up Notes Wt.: 138.0 KG Pt's intubated sedated remains NPO with no family by bedside. per RN pt for possible CPAP later today and hence no new diet order Est. Needs based on AdBW (107 kg): 2150 kcal to 2450 kcal (20-23 kcal/kgAdBW),107 gms to 128 gms pro (1.0-1.2 gms/kgAdBW). Will continue to monitor pertinent labs and reassess nutrient need prn Labs: BUN 27 H, CO2 36 H, CA 7.8 L, ALB 1.8 L. Skin: Onel scale 16, mod risk pt with callous and redness on leg per RN doc GI: Pt has no BM reported with 150 ml gastric drainage per esl professor. PES: Increased nutrient needs r/t Chronic/current medical status aeb intubated, severe hypoalbuminemia, NPO. Altered nutrition related lab values r/t current/chronic medical condition aeb hyperglycemia, hyponatremia, hypochloremia, elev. Trop I, LFTs, hyperbilirubinemia, hypocalcemia and severe hypoalbuminemia Obesity r/t food intake more than body requirement aeb 186% IBW, BMI 45.0 kg/m2 and increased body adiposity Will continue to monitor NPO status, skin status, pertinent labs and weight trend. F/u in 2 to 3 days. Rec.: 1.) If still NPO in next 48 hrs, consider alternate nutrition support if medically appropriate. 2.) EN support preferred with formula choice of Jevity 1.2 Solis @ 75 ml/hr goal rate as tolerated. 3.) If Albumin continues trending down, consider Prostat 1 pkt BID. 4.) Consider daily MVI with minerals and Asc acid 500 mgs BID. 4.) Consider close supervision and feeding assistance prn during meals. 5.) Refer to RD for further nutrition educ. and weight monitoring upon discharge. 6.) Continue current plan of care.
--- NOTE | 2019-09-10 11:45 | NUR ---
UPDATE Patient tolerating PEEP changes at this time. Will let RT know.
--- NOTE | 2019-09-10 13:30 | NUR ---
Respiratory note: WEANING PARAMETERS VC 1605, NIF -44.4, RSBI 30, LEAK 150.
--- NOTE | 2019-09-10 13:43 | NUR ---
Respiratory note: PT WAS EXTUBATED PER ORDERS. PT WAS PLACED ON COOL MIST 10L 45% FIO2. BREATH SOUNDS ARE COARSE NO STRIDOR NOTED. HR 71, RR 12, POX 96%
--- NOTE | 2019-09-10 13:43 | NUR ---
EXTUBATED Patient extubated at this time. No stridor noted. Cool mask applied, patient informed to not talk and keep mask on.
--- NOTE | 2019-09-10 14:53 | NUR ---
CALLED FAMILY Called daughter, Tash, and updated her on patients status.
--- NOTE | 2019-09-10 16:45 | NUR ---
SPOKE TO MD Per Dr. Lynch if patient maintains currents condition he will be able to transfer to [facility] at 1999.
--- NOTE | 2019-09-10 17:30 | NUR ---
FULL LINEN CHANGE Full linen change, patient tolerated well.
--- NOTE | 2019-09-10 19:00 | NUR ---
OPENING NOTES ASSUMED CARE, AWAKE AND ORIENTED WITH NO SIGNS OF DISTRESS AND NO C/O PAIN. LEFT SUBCLAVIAN TLC PATENT AND INTACT, MENEZES CATHETER DRAINING TO A LIGHT RILEY URINE. BED IN LOWEST POSITION WITH SIDE RAILS UP, BED ALARM ON, CALL LIGHT WITHIN REACH. WILL CONTINUE CARE.
[2019-09-11] VITALS (7 sets, daily range): BP systolic 104–145; BP diastolic 61–85
[2019-09-11] MEDS: IPRATROPIUM BROM 0.5 MG/2.5ML INH SOL NEB SCH ×6 (02:19→22:46)
[2019-09-11] MEDS: ALBUTEROL SULF 2.5 MG/0.5ML(0.5%) NEB SOLN NEB SCH ×6 (02:19→22:46)
--- NOTE | 2019-09-11 03:47 | NUR ---
MORNING CARE DONE. SKIN REASSESSED FOR ANY CHANGES. REPOSITIONED FOR COMFORT.
[2019-09-11] MEDS: VANCOMYCIN 1,250 MG in D5W 5% 250 ML IV SCH ×2 (03:48→04:00)
--- NOTE | 2019-09-11 04:00 | NUR ---
VANCOMYCIN IV HELD, VANCO TROUGH 20.4 Addendum: 09/11/19 at 0511 by Michael Mclaughlin RN LATEST VANCO TROUGH 21.1
[2019-09-11 04:24] LABS: Hemoglobin 13.5 g/dL (13.5-17.5); Platelet Count (auto) 46 10^3/uL (140-450)
[2019-09-11 04:27] LABS: Hematocrit 39.5 % (41.0-53.0); Mean Corpuscular Hemoglobin 36.4 pg (28.0-32.0); Mean Corpuscular Hgb Conc. 34.2 g/dL (32.0-36.0); Mean Corpuscular Volume 106.4 fL (80.0-100.0); Red Blood Cells 3.71 10^6/uL (4.5-5.90); Red Cell Distribution Width 13.4 % (11.8-14.3); White Blood Cell 9.2 10^3/uL (4.4-10.8)
[2019-09-11 04:38] LABS: INR 1.44 (0.9-1.15)
[2019-09-11 04:42] LABS: Basophils % (manual) 0 (0.0-2.0); Blast Cells 0; Eosinophils % (manual) 0 (0-7); Metamyelocytes % 0; Myelocytes % 0; Promyelocytes % 0; Reactive Lymphocytes 0
[2019-09-11 04:47] LABS: BUN/Creatinine Ratio 29.4; Calcium 7.5 mg/dL (8.5-10.1); Potassium 3.9 mmol/L (3.5-5.1)
--- NOTE | 2019-09-11 04:50 | NUR ---
ICU pt transferred to [facility] transferred to [facility] via specialty bed on equipment monitor phototypesetting and portable 02/ oxymizer @ 6L/min. All patient medications and personal belongings transferred with patient to receiving floor. Patient care transferred to Sylvia VALVERDE. No distress at the time of departure. NOTE:
--- NOTE | 2019-09-11 05:00 | NUR ---
Admit to [facility] transferred to [facility] via bed from ICU on cardiac cath lab radiology technologist, and portable 02. Patient connected to unit monitoring and oxygen. Patient oriented to Sylvia Antunez, primary RN, unit, room, bed, and unit policies regarding patient care and visiting hours. All questions and concerns addressed, patient verbalized understanding. Pt stable at this time, alert and oriented. Will continue to monitor. Report received from Leny VALVERDE.
--- NOTE | 2019-09-11 05:47 | NUR ---
Respiratory note: SCHEDULED MED NEB TX NOT GIVEN. PT STATED HE WOULD LIKE TO SLEEP AND NOT DO TX AT THIS TIME. HR 71, RR 16, SPO2 91% ON 10L OXYMIZER. PATIENT HAD A SLIGHT WHEEZE. I ADVISED PATIENT TO TAKE TREATMENT AND HE STILL REFUSED. NO DISTRESS NOTED. PATIENT STATED HE WOULD TAKE THE NEXT SCHEDULED TX.
[2019-09-11 06:05] LABS: Band Neutrophils % (manual) 2; Lymphocytes % (manual) 6 (10.0-50.0); Monocytes % (manual) 4 (0-12)
[2019-09-11] MEDS: MEROPENEM 1GM IVPB 100 ML IV SCH ×3 (06:41→22:43)
--- NOTE | 2019-09-11 07:45 | NUR ---
Opening Shift Note Assumed care of patient, awake and alert. No S/S of distress/SOB or pain. Patient saturation 94% at 8 LPM oxygen via oxymizer. See interventions for complete assessment. Patient on specialty bed, locked on low position, side rails up x2, bed alarms on at all times, call willard within reach, instructed on POC and to call for assist PRN, will continue to monitor for changes Q1hr and PRN.
--- NOTE | 2019-09-11 08:06 | NUR ---
Patient's daughter Tash at bedside, updated on patient's status and POC. All questions and concerns addressed
[2019-09-11] MEDS: CARVEDILOL 3.125 MG TAB PO SCH ×2 (10:00→22:43)
[2019-09-11] MEDS: methylPREDNISolone SOD SUCC 40 MG/ML VL IV SCH ×2 (10:26→22:41)
[2019-09-11] MEDS: FAMOTIDINE (10MG/ML) 2ML VL IV SCH ×2 (10:26→22:41)
[2019-09-11] MEDS: THIAMINE 100mg/ml INJ (200mg/2ml VIAL) IV SCH (10:26)
--- NOTE | 2019-09-11 11:00 | NUR ---
Dr Dawn at bedside, updated on patient's status. Patient seen and examined. Received verbal order for PT consult. Orders read back and verified. Will carry out.
[2019-09-11] MEDS: FUROSEMIDE 20 MG/2 ML VIAL IV SCH ×2 (12:34→22:42)
[2019-09-11] MEDS: VANCOMYCIN 1GM/250ML 250 ML IV SCH (12:36)
--- NOTE | 2019-09-11 14:30 | NUR ---
Patient accidentally pulled out LT subclavian central line. Blue tip intact. No bleeding noted.
--- NOTE | 2019-09-11 14:45 | NUR ---
IV insertion IV access obtained, via clean sterile technique by inserting 22 gauge catheter at LT wrist after one attempt. IV secured properly. No trauma to site. Patient tolerated well.
[2019-09-11] MEDS: ASPirin 81 mg TAB GT SCH (15:42)
--- NOTE | 2019-09-11 15:45 | NUR ---
SWALLOW EVALUATED WITH FAMILY PRESENT. PATIENT HAS NO TEETH OR DENTURES. ABLE TO FOLLOW DIRECTIONS. PATIENT ABLE TO TOLERATE PUREE DIET TRIAL AND MECHANICAL SOFT DIET TEXTURE WITH THIN LIQUIDS WITH NO OVERT SIGNS OR SYMPTOMS OF ASPIRATION. NURSING NOTIFIED.
--- NOTE | 2019-09-11 16:00 | NUR ---
Dr Benavides at bedside, updated on patient's status. Patient seen and examined. No new orders at this time.
[2019-09-12] VITALS (7 sets, daily range): BP systolic 98–130; BP diastolic 62–73
[2019-09-12] MEDS: VANCOMYCIN 1GM/250ML 250 ML IV SCH ×2 (01:00→13:10)
[2019-09-12] MEDS: ALBUTEROL SULF 2.5 MG/0.5ML(0.5%) NEB SOLN NEB SCH ×7 (02:40→23:03)
[2019-09-12] MEDS: IPRATROPIUM BROM 0.5 MG/2.5ML INH SOL NEB SCH ×7 (02:40→23:03)
[2019-09-12 06:00] LABS: Basophils # (auto) 0 uL; Eosinophils # (auto) 0 uL; Lymphocytes # (auto) 0.1 uL; Monocytes # (auto) 0.6 uL; Neutrophils # (auto) 5.7 uL; White Blood Cell 6.4 10^3/uL (4.4-10.8)
[2019-09-12] MEDS: MEROPENEM 1GM IVPB 100 ML IV SCH ×3 (06:00→22:28)
[2019-09-12 06:01] LABS: Hematocrit 39.6 % (41.0-53.0); Hemoglobin 13.5 g/dL (13.5-17.5); Lymphocytes % (auto) 2.3 % (10.0-50.0); Mean Corpuscular Hemoglobin 36.3 pg (28.0-32.0); Mean Corpuscular Hgb Conc. 33.9 g/dL (32.0-36.0); Monocytes % (auto) 9.1 % (0.0-12.0); Neutrophils % (auto) 88.6 % (37.0-80.0); Platelet Count (auto) 32 10^3/uL (140-450); Red Blood Cells 3.71 10^6/uL (4.5-5.90); Red Cell Distribution Width 13.4 % (11.8-14.3)
[2019-09-12 06:26] LABS: Alanine Aminotransferase 42 U/L (16-61); Albumin 2.2 g/dL (3.4-5.0); Alkaline Phosphatase 82 U/L (45-117); Anion Gap 4 (5-15); Aspartate Aminotransferase 69 U/L (15-37); BUN/Creatinine Ratio 28.9; Bilirubin, Total 2.1 mg/dL (0.2-1.0); Blood Urea Nitrogen 22 mg/dL (7-18); Carbon Dioxide 36 mmol/L (21-32); Chloride 93 mmol/L (98-107); GFR African American 133 mL/min; GFR Non-African American 110 mL/min; Glucose 108 mg/dL (74-106); Potassium 4.6 mmol/L (3.5-5.1); Sodium 133 mmol/L (136-145); Total Protein 6.3 g/dL (6.4-8.2)
--- NOTE | 2019-09-12 06:56 | NUR ---
Pt received a complete linen change, with a sponge bath and CHG wipes.
--- NOTE | 2019-09-12 07:30 | NUR ---
RECEIVED PATIENT SITTING UP IN THE BED, AWAKEN TO NAME BEING CALLED, O2 BY THE OXYMIZER AT 8L, A/O TIMES 4, MENEZES TO GRAVITY, ON SPECIALTY BED, SCD'S TO THE LEFT LEG, SALINE LOCK TO THE LFA 22G FLUSHED AND PATENT, DENIES ALINA AND SOB
--- NOTE | 2019-09-12 08:30 | NUR ---
SITTING UP IN THE BED EATING HIS BREAKFAST
--- NOTE | 2019-09-12 09:15 | NUR ---
PATIENT DECLINED P.T. TODAY.
--- NOTE | 2019-09-12 09:30 | NUR ---
STATES HE IS DOING OKAY O2 TURNED DOWN TO 6L BY THE OXYMIZER
[2019-09-12] MEDS: THIAMINE 100mg/ml INJ (200mg/2ml VIAL) IV SCH (10:12)
[2019-09-12] MEDS: FAMOTIDINE (10MG/ML) 2ML VL IV SCH ×2 (10:12→22:28)
[2019-09-12] MEDS: methylPREDNISolone SOD SUCC 40 MG/ML VL IV SCH ×2 (10:12→22:28)
--- NOTE | 2019-09-12 10:12 | NUR ---
DISCUSSED MEDICATIONS WITH THE PATIENT REGARDING THE DOSAGE, USAGE AND THE SIDE EFFECTS, STATED HE UNDERSTOOD AND MEDS GIVEN ORDERED,
[2019-09-12] MEDS: FUROSEMIDE 20 MG/2 ML VIAL IV SCH ×2 (10:26→22:31)
--- NOTE | 2019-09-12 10:35 | NUR ---
DR FRANCIS HERE TO SEE THE PATIENT AND BREATHING TREATMENT BEING DONE
--- NOTE | 2019-09-12 10:45 | NUR ---
PT INTO GET THE PATIENT UP BUT HE REFUSED, STATES HE IS TIRED FROM BEING UP LAST NIGHT, DIDN'T GET AY SLEEP
--- NOTE | 2019-09-12 11:08 | NUR ---
Nutrition Follow-up Notes Wt.: 138.0 KG Pt's successfully extubated with MD at bedside when rounded this am. per records pt s/p ST yesterday and advanced to [facility] soft diet with inadequate pO of 50% x 1 per RN doc Est. Needs based on AdBW (107 kg): 2150 kcal to 2450 kcal (20-23 kcal/kgAdBW),107 gms to 128 gms pro (1.0-1.2 gms/kgAdBW). Will continue to monitor pertinent labs and reassess nutrient need prn Labs: ALB 2.2 L, CO2 36 H, CA 8.0 L, TRINA 2.1 H, GLU 108 H. Skin: Onel scale 15, mod risk pt with callous and redness on leg per RN doc GI: Pt has no BM reported with 150 ml gastric drainage per personal secretary. PES: Partially resolved: Increased nutrient needs r/t Chronic/current medical status aeb intubated, severe hypoalbuminemia, NPO. Altered nutrition related lab values r/t current/chronic medical condition aeb hyperglycemia, hyponatremia, hypochloremia, elev. Trop I, LFTs, hyperbilirubinemia, hypocalcemia and severe hypoalbuminemia Obesity r/t food intake more than body requirement aeb 186% IBW, BMI 45.0 kg/m2 and increased body adiposity Will continue to monitor PO intake, skin status, pertinent labs and weight trend. F/u in 3-5 days. Rec.: 1.) Continue assistance with meals. 2) If Albumin continues trending down, consider Prostat 1 pkt BID. 3.) Consider daily MVI with minerals and Asc acid 500 mgs BID. 4.) Consider close supervision and feeding assistance prn during meals. 5.) Refer to RD for further nutrition educ. and weight monitoring upon discharge. 6.) Continue current plan of care.
[2019-09-12] MEDS: Glucerna Carbsteady SHAKE Vanilla 8oz PO SCH ×2 (12:00→18:00)
--- NOTE | 2019-09-12 12:15 | NUR ---
DR العلي IN TO SEE THE PATIENT
--- NOTE | 2019-09-12 12:30 | NUR ---
PATIENT ONLY DRANK HIS PROTEIN DRINK FOR LUNCH, STATES HE WANTS TO LOSE WEIGHT
[2019-09-12] MEDS: CARVEDILOL 3.125 MG TAB PO SCH ×2 (13:02→22:29)
--- NOTE | 2019-09-12 13:35 | NUR ---
FAMILY IN TO SEE THE PATIENT
--- NOTE | 2019-09-12 14:30 | NUR ---
DENIES PAIN, WATCHING FOOTBALL
--- NOTE | 2019-09-12 15:30 | NUR ---
TALKING IN THE PHONE TO HIS SONE Addendum: 09/12/19 at 1647 by Shanita Haas RN [facility] [place] TALKING TO HIS SON
--- NOTE | 2019-09-12 16:39 | NUR ---
SITTING UP IN BED WATCHING THE FIGHT
--- NOTE | 2019-09-12 17:30 | NUR ---
TRYING TO GET OUT OF BED STATES HE IS GOING OUT SIDE REMINDED THE PATIENT THAT HE IS IN THE HOSPITAL AND HE CAN'T GO OUTSIDE, PATIENT IS FORGETFUL
--- NOTE | 2019-09-12 18:30 | NUR ---
SAT UP IN BED AND ATE HIS DINNER ONLY ATE ABOUT 10% BUT DRANK HIS PROTEIN SHAKE, A/O, O2 BY THE OXYMIZER AT 6L, 22G TO THE LFA WITH NS AT 10ML/HR TO TKO, DENIES PAIN, MENEZES TO GRAVITY, ON A SPECIALTY BED, ABLE TO MOVE AROUND IN THE BED AND TURN HIMSELF WITH MINIMAL ASSISTANCE, SCD'S TO THE LEFT LEG, WILL CONTINUE TO MONITOR AND GIVE REPORT TO THE NEXT SHIFT
--- NOTE | 2019-09-12 23:04 | NUR ---
Respiratory note: PT REFUSE NEXT SCHEDULED MED NEB FOR 0200. PT NOTIFIED TO CALL RT IF SOB OCCURS
[2019-09-13] VITALS: BP 135/79
[2019-09-13] MEDS: VANCOMYCIN 1GM/250ML 250 ML IV SCH (02:06)
[2019-09-13 04:00] VITALS: BP 126/76
[2019-09-13 05:43] LABS: Basophils # (auto) 0 uL; Eosinophils # (auto) 0 uL; Hemoglobin 14.6 g/dL (13.5-17.5); Lymphocytes # (auto) 0.3 uL; Monocytes # (auto) 0.6 uL; Red Blood Cells 4.02 10^6/uL (4.5-5.90)
[2019-09-13 05:44] LABS: Basophils % (auto) 0.4 % (0.0-2.0); Hematocrit 42.6 % (41.0-53.0); Lymphocytes % (auto) 3.2 % (10.0-50.0); Mean Corpuscular Hemoglobin 36.2 pg (28.0-32.0); Mean Corpuscular Hgb Conc. 34.2 g/dL (32.0-36.0); Monocytes % (auto) 8.1 % (0.0-12.0); Neutrophils % (auto) 88.3 % (37.0-80.0); Nucleated Red Blood Cells % 0.1 %; Platelet Count (auto) 38 10^3/uL (140-450); Red Cell Distribution Width 13.6 % (11.8-14.3)
[2019-09-13] MEDS: MEROPENEM 1GM IVPB 100 ML IV SCH ×3 (06:00→22:12)
[2019-09-13 06:04] LABS: BUN/Creatinine Ratio 31.3; Calcium 8.1 mg/dL (8.5-10.1); Potassium 4.5 mmol/L (3.5-5.1)
[2019-09-13] MEDS: IPRATROPIUM BROM 0.5 MG/2.5ML INH SOL NEB SCH ×5 (06:15→22:49)
[2019-09-13] MEDS: ALBUTEROL SULF 2.5 MG/0.5ML(0.5%) NEB SOLN NEB SCH ×5 (06:15→22:49)
--- NOTE | 2019-09-13 07:30 | NUR ---
RECEIVED PATIENT SITTING UP IN THE BED, A/O TIMES 4, O2 BY THE OXYMIZER AT 6L, PATIENT ON A SPECIALTY BED, SCD'S TO THE LEGS, MENEZES TO GRAVITY, SALINE LOCK TO THE LFA 22G INTACT FLUSHED AND PATENT, DENIES PAIN,
--- NOTE | 2019-09-13 07:50 | NUR ---
Pt remained stable this shift. Confused but pleasant. Pt is over estimating limits and has tried to get out of bed. Pt also forgets to keep Oxymizer on his face. Close monitoring for safety. Report given, care endorsed.
[2019-09-13 08:00] VITALS: BP 129/93
[2019-09-13] MEDS: Glucerna Carbsteady SHAKE Vanilla 8oz PO SCH ×3 (08:00→17:36)
--- NOTE | 2019-09-13 08:30 | NUR ---
SITTING UP IN THE BED EATING HIS BREAKFAST NO HELP NEEDED DENIES PAIN
--- NOTE | 2019-09-13 08:45 | NUR ---
DAUGHTER IN TO SEE THE PATIENT
--- NOTE | 2019-09-13 09:00 | NUR ---
PATIENT SITTING U PIN THE BED TALKING TO HIS SON ON THE PHONE
[2019-09-13] MEDS: CARVEDILOL 3.125 MG TAB PO SCH ×2 (10:00→22:00)
--- NOTE | 2019-09-13 10:00 | NUR ---
EXPLAIN MEDICATIONS TO THE PATIENT REGARDING THE DOSAGE,USAGE AND THE SIDE EFFECTS, VERBALIZED THAT HE UNDERSTOOD AND MEDS GIVEN ORDERED
[2019-09-13] MEDS: FAMOTIDINE (10MG/ML) 2ML VL IV SCH ×2 (10:03→22:13)
[2019-09-13] MEDS: methylPREDNISolone SOD SUCC 40 MG/ML VL IV SCH ×2 (10:03→22:13)
[2019-09-13] MEDS: FUROSEMIDE 20 MG/2 ML VIAL IV SCH ×2 (10:04→22:12)
[2019-09-13] MEDS: THIAMINE 100mg/ml INJ (200mg/2ml VIAL) IV SCH (10:04)
--- NOTE | 2019-09-13 10:05 | NUR ---
BREATHING TREATMENT BEING GIVING
--- NOTE | 2019-09-13 10:35 | NUR ---
DR GAITAN IN TO SEE THE PATIENT
--- NOTE | 2019-09-13 11:04 | NUR ---
SITTING UP IN THE BED, WITH O2 BY THE OXYMIZER
--- NOTE | 2019-09-13 11:08 | NUR ---
MARTITA HILL INTO SEE THE PATIENT
[2019-09-13 12:00] VITALS: BP 129/81
[2019-09-13] MEDS ORDERED: VANCOMYCIN 1GM/250ML 250 ML IV SCH (12:00)
--- NOTE | 2019-09-13 12:35 | NUR ---
DR KAPOOR INTO SEE THE PATIENT
--- NOTE | 2019-09-13 12:37 | NUR ---
PT WORKING WITH THE PATIENT GOTTEN UP AND WALKING INTO THE UNIT THEN GOTTEN INTO THE CHAIR, TOLERATED WELL,
--- NOTE | 2019-09-13 12:50 | NUR ---
DR CALLAWAY IN TO SEE THE PATIENT
--- NOTE | 2019-09-13 13:00 | NUR ---
SITTING UP IN THE CHAIR EATING HIS LUNCH NO HELP NEEDED TO EAT
--- NOTE | 2019-09-13 13:20 | NUR ---
patient having sob o2 sat 86% notified rt and turned o2 up to 12l by the Oxymizer
--- NOTE | 2019-09-13 14:00 | NUR ---
SITTING UP IN THE CHAIR WATCHNG TV, DENIES PAIN, O2 SAT 91%
--- NOTE | 2019-09-13 15:19 | NUR ---
NOTIFIED BY MARTITA HILL THAT PATIENT GOING FOR HEART CATH ON 09/[address] GILLESPIE
--- NOTE | 2019-09-13 15:38 | NUR ---
MARTITA LICENSED THERAPIST IN TO SEE THE PATIENT AND TALK TO HIM ABOUT THE HEART CATH ON 09/15, VERBALIZED THAT HE UNDERSTOOD AND WILL SIGN THE CONSENTS
[2019-09-13 16:00] VITALS: BP 124/76
--- NOTE | 2019-09-13 16:09 | NUR ---
GOTTEN BACK INTO THE BED BY PT AFTER WALKING IN THE UNIT ABOUT 200FEET
--- NOTE | 2019-09-13 16:59 | NUR ---
SIGNED THE CONSENT FOR THE HEART CATH ON Friday
--- NOTE | 2019-09-13 17:23 | NUR ---
SITTING UP IN BED WATCHING TV
--- NOTE | 2019-09-13 18:03 | NUR ---
WATCHING TV, O2 TURNED DOWN TO 8L BY THE OXYMIZER 02 SAT 93%
--- NOTE | 2019-09-13 18:18 | NUR ---
SITTING UP IN BED GRANDDAUGHTER IN TO VISIT WITH THE PATIENT WHO IS TALKING ON THE PHONE, A/O TIMES 4, O2 AT 8L BY THE OXYMIZER AT 91%, ON A SPECIALTY BED, MENEZES TO GRAVITY , SCD'S TO LEGS, SALINE LOCK TO THE LFA 22GG FLUSHED AND PATENT, NO COMPLAINTS OF PAIN, WILL CONTINUE TO MONITOR AND GIVE REPORT TO THE NEXT SHIFT
--- NOTE | 2019-09-13 19:25 | NUR ---
OPENING SHIFT RECEIVED REPORT FROM DAY SHIFT RN. ASSUMED CARE OF PATIENT. PATIENT IN BED WATCHING TV WITH NO SIGNS OR SYMPTOMS OF SOB, PAIN OR DISTRESS. CURRENTLY ON 6L OXYMIZER, 02 SAT- 95%. LEFT FOREARM IV - CLEAN/DRY/INTACT. MENEZES HUNG TO GRAVITY ON BED RAIL. UPDATED PATIENT ON PLAN OF CARE. REPOSITIONED FOR COMFORT. BED IN LOWEST POSITION, SIDE RAILS UP X2, CALL LIGHT WITHIN REACH. WILL CONTINUE TO MONITOR.
[2019-09-13 20:00] VITALS: BP 124/76
--- NOTE | 2019-09-13 21:14 | NUR ---
PM CARE PERFORMED PM CARE WITH CHG WIPES AND WASH CLOTHS TO THE FACE. FULL LINEN CHANGE AND GOWN CHANGED. SKIN REASSESSED AT THIS TIME. REPOSITIONED FOR COMFORT. WILL CONTINUE TO MONITOR.
--- NOTE | 2019-09-13 21:30 | NUR ---
PM CARE Performed p.m care with CHG wipes and wash cloths. Complete linen change and gown change. Reassessed skin with R.N at this time. Repositioned for comfort. Will continue to monitor.
[2019-09-14] VITALS: BP 129/75
[2019-09-14] MEDS: ALBUTEROL SULF 2.5 MG/0.5ML(0.5%) NEB SOLN NEB SCH ×6 (02:00→22:10)
[2019-09-14] MEDS: IPRATROPIUM BROM 0.5 MG/2.5ML INH SOL NEB SCH ×6 (02:00→22:10)
--- NOTE | 2019-09-14 02:14 | NUR ---
Respiratory note: PT REFUSED HHN TX. PT DID NOT WANT TO BE WOKEN UP. SPO2 94% ON 6L OXIMYZER. HR 54 BPM. RR 14. WILL CONTINUE TO MONITOR.
[2019-09-14 05:32] LABS: Red Blood Cells 3.86 10^6/uL (4.5-5.90); Red Cell Distribution Width 13.5 % (11.8-14.3); White Blood Cell 5.4 10^3/uL (4.4-10.8)
[2019-09-14 05:33] LABS: Hematocrit 40.9 % (41.0-53.0); Mean Corpuscular Hemoglobin 36.4 pg (28.0-32.0); Mean Corpuscular Hgb Conc. 34.3 g/dL (32.0-36.0); Mean Corpuscular Volume 106.1 fL (80.0-100.0); Platelet Count (auto) 36 10^3/uL (140-450)
[2019-09-14] MEDS: MEROPENEM 1GM IVPB 100 ML IV SCH (05:34)
[2019-09-14 05:42] LABS: Band Neutrophils % (manual) 0; Basophils % (manual) 0 (0.0-2.0); Blast Cells 0; Eosinophils % (manual) 0 (0-7); Lymphocytes % (manual) 0 (10.0-50.0); Metamyelocytes % 0; Myelocytes % 0; Promyelocytes % 0; Reactive Lymphocytes 0
[2019-09-14 05:49] LABS: Albumin 2.3 g/dL (3.4-5.0); Calcium 8.1 mg/dL (8.5-10.1); Magnesium 1.9 mg/dL (1.6-2.6); Potassium 4.3 mmol/L (3.5-5.1)
[2019-09-14 05:52] LABS: BUN/Creatinine Ratio 31.1
[2019-09-14 05:54] LABS: Total Protein 6.3 g/dL (6.4-8.2)
[2019-09-14 05:55] LABS: Monocytes % (manual) 3 (0-12)
[2019-09-14 06:00] VITALS: BP 152/85
--- NOTE | 2019-09-14 07:23 | NUR ---
END OF SHIFT REPORT GIVEN TO DAY SHIFT RN. CARE ENDORSED.
[2019-09-14 08:00] VITALS: BP 154/88
[2019-09-14] MEDS: Glucerna Carbsteady SHAKE Vanilla 8oz PO SCH ×3 (08:00→18:00)
--- NOTE | 2019-09-14 08:00 | NUR ---
OPENING NOTE Received patient resting in bd watching television. Patient alert and oriented X4 with periods of forgetfulness, speech appropriate/clear, left side weaker than the right. Oximizer on at 6 liters with no signs/symptoms of respiratory distress. Sinus rhythm in the 60's on the bedside monitor, pulses palpable on upper/lower extremities with no edema observed. Abdomen soft, non tender and distended with bowel sounds present in all quadrants last bowel movement on unknown per NOC nurse. Poe catheter draining to gravity light lucia urine. IV to the left forearm 22g: good blood return and flushes easily infusing NORMAL saline at TKO. Multiple skin issues see assessment for more details. Call light within reach and bed at lowest position. Will continue to monitor patient closely.
--- NOTE | 2019-09-14 08:10 | NUR ---
FAMILY Patients daughter at bedside updated on patient condition.
--- NOTE | 2019-09-14 08:35 | NUR ---
NUTRITION Patient finished eating breakfast ate 85% independently, patient tolerated well.
[2019-09-14] MEDS: CARVEDILOL 3.125 MG TAB PO SCH ×2 (10:00→22:06)
[2019-09-14] MEDS: predniSONE 20 MG TAB PO SCH (10:14)
[2019-09-14] MEDS: THIAMINE 100mg/ml INJ (200mg/2ml VIAL) IV SCH (10:14)
[2019-09-14] MEDS: FAMOTIDINE (10MG/ML) 2ML VL IV SCH ×2 (10:15→22:03)
--- NOTE | 2019-09-14 10:48 | NUR ---
MD Dr. Lynch at bedside updated on patient condition with new orders, this RN to input into system.
--- NOTE | 2019-09-14 10:50 | NUR ---
DOWNGRADE Charge nurse Clarisse aware of downgrade to Telemetry floor, Clarisse to notify assistant executive housekeeper.
--- NOTE | 2019-09-14 11:10 | NUR ---
PHYSICAL THERAPY Physical thersofiya Curran at bedside and had patient walk the unit X2 with walker. Patient tolerated well.
--- NOTE | 2019-09-14 11:15 | NUR ---
BED ASSIGNMENT Received bed assignment from [place] patient to transfer to room 278B.
--- NOTE | 2019-09-14 11:25 | NUR ---
REPORT Report given to Karly VALVERDE, who will continue plan of care once patient arrives to room 278B.
--- NOTE | 2019-09-14 11:30 | NUR ---
TRANSFERRED PATIENT Patient transferred to room 278b accompanied by Karly VALVERDE and Loco HINKLE with Telemetry box 72 and portable oxygen. All belongings with patient.
[2019-09-14 13:00] VITALS: BP_SYST 152; BP_SYST 158; BP_DIAS 82; BP_DIAS 94
[2019-09-14] MEDS ORDERED: LEVOFLOXACIN 250 MG TAB PO ONE (13:00)
[2019-09-14] MEDS ORDERED: MAGNESIUM SULFATE 1GM/100ML 100 ML IV ONE (13:00)
--- NOTE | 2019-09-14 15:59 | NUR ---
ABG NOT DONE. PT WANTED TO USE THE COMMODE FIRST. PT IS AWAKE, ALERT AND ORIENTED. NO RESPIRATORY DISTRESS NOTED. ABRAM PRICE AT BEDSIDE. RN WILL CALL RT WHEN PT IS AVAILABLE. WILL CONTINUE TO MONITOR PT.
[2019-09-14 16:45] VITALS: BP 146/88
--- NOTE | 2019-09-14 17:00 | NUR ---
IV removal IV DC'd with clean sterile technique, catheter fully intact. Pressure dressing applied to site. Patient tolerated well. NOTE: [LEFT HAND LEAKING]
--- NOTE | 2019-09-14 17:16 | NUR ---
Kaminski catheter dc'd Order to discontinue kaminski catheter. Kaminski dc'd with clean technique following deflation of balloon. Patient tolerated well with no complaints of pain. Continue care.
--- NOTE | 2019-09-14 17:16 | NUR ---
NO IV ACCESS ATTEMPTED TO INSERT NEW IV, UNABLE TO ADVANCE CATHETER. 4 UNSUCCESSFUL ATTEMPTS, WILL ENDORSE TO THREAD SPOOLER RN.
--- NOTE | 2019-09-14 19:10 | NUR ---
Patient resting in bed with family at bedside. No s/s of distress or SOB. Care endorsed to funeral sales manager RN.
--- NOTE | 2019-09-14 19:25 | NUR ---
Opening Shift Note Report received from day shift RN. Assumed care of patient. Patient resting in bed and A&O x4. No S/S of distress/SOB noted and denies pain at this time. Patient able to void in urinal and states no feelings of bladder discomfort or retention. Instructed on POC and to call for assist PRN, will continue to monitor for changes Q1hr and PRN.
[2019-09-14 21:33] VITALS: BP 127/81
[2019-09-15] MEDS: ALBUTEROL SULF 2.5 MG/0.5ML(0.5%) NEB SOLN NEB SCH ×7 (02:28→22:49)
[2019-09-15] MEDS: IPRATROPIUM BROM 0.5 MG/2.5ML INH SOL NEB SCH ×7 (02:28→22:49)
[2019-09-15 05:01] VITALS: BP 99/56
[2019-09-15 05:46] LABS: Basophils # (auto) 0 uL; Basophils % (auto) 0.3 % (0.0-2.0); Eosinophils # (auto) 0.1 uL; Eosinophils % (auto) 1.7 % (0.0-7.0); Hematocrit 41.6 % (41.0-53.0); Hemoglobin 13.9 g/dL (13.5-17.5); Lymphocytes # (auto) 0.6 uL; Mean Corpuscular Hemoglobin 35.3 pg (28.0-32.0); Mean Corpuscular Hgb Conc. 33.3 g/dL (32.0-36.0); Monocytes # (auto) 0.5 uL; Monocytes % (auto) 8.7 % (0.0-12.0); Neutrophils # (auto) 4.9 uL; Neutrophils % (auto) 80.3 % (37.0-80.0); Nucleated Red Blood Cells % 0.1 %; Platelet Count (auto) 42 10^3/uL (140-450); Red Blood Cells 3.92 10^6/uL (4.5-5.90); Red Cell Distribution Width 13.5 % (11.8-14.3); White Blood Cell 6.1 10^3/uL (4.4-10.8)
[2019-09-15 06:00] LABS: INR 1.43 (0.9-1.15)
[2019-09-15 06:08] LABS: BUN/Creatinine Ratio 32.8; Calcium 8.1 mg/dL (8.5-10.1); Potassium 4.1 mmol/L (3.5-5.1)
--- NOTE | 2019-09-15 06:30 | NUR ---
Critical lab Critical lab value, CO2: 42, hospitalist paged awaiting call back.
--- NOTE | 2019-09-15 07:00 | NUR ---
HOSPITALIST CALLED BACK, MADE AWARE OF CRITICAL LAB. NO NEW ORDERS.
--- NOTE | 2019-09-15 07:18 | NUR ---
CECILIA NIGHT NURSE REPORTED CRITICAL LAB VALUE CO2 OF 42 TO ABDOULAYE HOSPITALISTMD AWARE, NO NEW ORDERS. PT LEFT FLOOR FOR KEYLINER VIA BED AND STAFF, NO DISTRESS NOTED.
[2019-09-15] MEDS ORDERED: IOHEXOL 350 MG/ML 100ML IJ ONE ×2 (08:36→08:46)
[2019-09-15] MEDS ORDERED: LIDOCAINE 2%HCL (LOCAL ANESTH.) INJ 20ML MDV ONE (08:36)
[2019-09-15 08:46] VITALS: BP 99/56
[2019-09-15] MEDS ORDERED: fentaNYL CITRATE 100 MCG/2 ML VL ONE (08:46)
[2019-09-15] MEDS ORDERED: SODIUM CHL 0.9% 0 ML ONE (08:46)
[2019-09-15] MEDS ORDERED: MIDAZOLAM HCL 1MG/1ML-2 ML VIAL ONE (08:46)
[2019-09-15] MEDS ORDERED: ANGIOMAX 250 MG VIAL IV ONE (08:46)
--- NOTE | 2019-09-15 10:41 | NUR ---
PT RETURNED FROM SMOKING PIPE LINER. CATH NEG. RIGHT GROIN INCISION CDI. 2X2 GAUZE AND TEGADERM DRESSING, NO DRAINAGE NOTED. SITE SOFT PALPABLE. VITALS: 97.5, 92%, 138/71, HR 69, RR 18. NO PAIN REPORTED. PT EDUCATED TO KEEP LEG STRAIGHT UNTIL 1130 TO AVOID BLEEDING. PT AWARE. CALL LIGHT IN REACH, WILL CONTINUE TO MONITOR.
[2019-09-15] MEDS ORDERED: SACUBITRIL-VALSARTAN 24mg/26mg TAB PO ONE (11:28)
[2019-09-15] MEDS: predniSONE 20 MG TAB PO SCH (11:49)
[2019-09-15] MEDS: FAMOTIDINE (10MG/ML) 2ML VL IV SCH ×2 (11:49→21:15)
[2019-09-15] MEDS: LEVOFLOXACIN 250 MG TAB PO SCH (11:50)
[2019-09-15] MEDS: Glucerna Carbsteady SHAKE Vanilla 8oz PO SCH ×3 (11:50→17:09)
[2019-09-15 13:00] VITALS: BP 129/72
--- NOTE | 2019-09-15 14:17 | NUR ---
Nutrition Follow-up Notes Wt.: 150.0 kg based on bed scale today. Pt's NPO, off the floor for a procedure when rounded this morning. Noted pt's s/p coronary angiography earlier, likely to resume today on oral diet with active order for Mechanical Soft diet with Glucerna Shakes 1 carton TID. Est. Needs based on AdBW (107 kg): 2150 kcal to 2450 kcal (20-23 kcal/kgAdBW),107 gms to 128 gms pro (1.0-1.2 gms/kgAdBW). Will continue to monitor pertinent labs and reassess nutrient need prn Labs: Na 133 L, Cl 90 L, CO2 42 H, BUN 19 H, Cr 0.58 L, Ca 8.1 L, Tot kalpana 2.0 L, AST 61 H, Tpro 6.3 L, Alb 2.3 L Skin: Onel scale 16, mod risk, pt's medial sacrum pressure ulcers,left lower leg open wound per field service consultant. Pls refer to latest strategic debriefing officer's notes for further details re: tx plans. GI: Pt has no bowel activity since 09/06/19 per field service consultant. PES: Partially resolved: Increased nutrient needs r/t Chronic/current medical status aeb intubated, severe hypoalbuminemia, NPO. Altered nutrition related lab values r/t current/chronic medical condition aeb hyperglycemia, hyponatremia, hypochloremia, elev. Trop I, LFTs, hyperbilirubinemia, hypocalcemia and severe hypoalbuminemia Obesity r/t food intake more than body requirement aeb 186% IBW, BMI 45.0 kg/m2 and increased body adiposity Will continue to monitor NPO status/PO intake, skin status, pertinent labs and weight trend. F/u in 3 to 5 days. Rec.: 1.) Resume oral diet (Mechanical Soft Cardiac: 2 gms Na, Low Chol, Low Fat diet) when medically appropriate. 2.) If Albumin continues trending down, consider Prostat 1 pkt BID. 3.) Consider daily MVI with minerals and Asc acid 500 mgs BID. 4.) Continue assistance with meals. 5.) Refer to RD for further nutrition educ. and weight monitoring upon discharge. 6.) Continue current plan of care.
--- NOTE | 2019-09-15 14:57 | NUR ---
SPOKE WITH DR QUEEN AT NURSING STATION. SHE REPORTS PT IS CLEARED FOR CARDIO.
--- NOTE | 2019-09-15 15:00 | NUR ---
CALLED PBX AND PAGED PHYSICAL THERAPY TO WORK WITH PATIENT.
--- NOTE | 2019-09-15 16:14 | NUR ---
WOUND RIGHT GAO CLEANSED WITH WOUND CLEANSER AND PATTED DRY WITH 4X4 GAUZE, NEW OPTIFOAM APPLIED.
[2019-09-15 17:01] VITALS: BP 133/80
[2019-09-15] MEDS: CARVEDILOL 3.125 MG TAB PO SCH (17:09)
--- NOTE | 2019-09-15 19:09 | NUR ---
Opening Shift Note Received report from day shift nurse, Peggy. Assumed care of patient. Patient is awake, alert, and orientated x 4. No S/S of distress/SOB or pain. Bed is in lowest position with side rails up x 2. Bed brakes are locked and call light is with in reach. HOB is 30 degrees. Discussed POC with patient and instructed to call for assist prn. Will continue to monitor for changes Q1hr and PRN.
--- NOTE | 2019-09-15 19:38 | NUR ---
IV PT'S IV OUT OF VEIN, SMALL AMOUNT OF BLOOD ON SHEETS AND GOWN. PATIENT IS A/O X 4. GAUZE AND PRESSURE DRESSING APPLIED AND NEW SHEETS AND GOWN GIVEN.
--- NOTE | 2019-09-15 20:48 | NUR ---
IV insertion IV access obtained, via clean sterile technique by inserting 22 gauge catheter at right forearm after 1 attempt. IV secured properly. No trauma to site. Patient tolerated well.
[2019-09-15 22:00] VITALS: BP 137/78
[2019-09-15] MEDS ORDERED: SACUBITRIL-VALSARTAN 24mg/26mg TAB PO SCH (22:00)
--- NOTE | 2019-09-15 22:13 | NUR ---
Respiratory note: PT IS REFUSING 0200 MED NEB TX. PT STATES NOT TO COME IN AND WAKE HIM THAT HE WANTS TO REST. WILL CONTINUE TO MONITOR.
[2019-09-16 05:00] VITALS: BP 103/66
[2019-09-16 05:49] LABS: Basophils # (auto) 0 uL; Basophils % (auto) 0.5 % (0.0-2.0); Eosinophils # (auto) 0.1 uL; Eosinophils % (auto) 1.8 % (0.0-7.0); Hematocrit 39.4 % (41.0-53.0); Hemoglobin 13.4 g/dL (13.5-17.5); Lymphocytes # (auto) 0.5 uL; Lymphocytes % (auto) 8.4 % (10.0-50.0); Mean Corpuscular Hemoglobin 35.8 pg (28.0-32.0); Mean Corpuscular Hgb Conc. 33.9 g/dL (32.0-36.0); Mean Corpuscular Volume 105.5 fL (80.0-100.0); Monocytes # (auto) 0.5 uL; Monocytes % (auto) 8.6 % (0.0-12.0); Neutrophils # (auto) 4.6 uL; Neutrophils % (auto) 80.7 % (37.0-80.0); Nucleated Red Blood Cells % 0.2 %; Platelet Count (auto) 44 10^3/uL (140-450); Red Blood Cells 3.74 10^6/uL (4.5-5.90); Red Cell Distribution Width 13.4 % (11.8-14.3); White Blood Cell 5.7 10^3/uL (4.4-10.8)
--- NOTE | 2019-09-16 07:07 | NUR ---
closing notes endorsed care to day shift nurse, Peggy.
[2019-09-16] MEDS: ALBUTEROL SULF 2.5 MG/0.5ML(0.5%) NEB SOLN NEB SCH ×5 (07:23→22:02)
[2019-09-16] MEDS: IPRATROPIUM BROM 0.5 MG/2.5ML INH SOL NEB SCH ×5 (07:23→22:02)
--- NOTE | 2019-09-16 07:48 | NUR ---
PT RESTING IN BED, NO DISTRESS NOTED, PT REPORTS NO PAIN AT THIS TIME. PT ENCOURAGED TO USE CALL LIGHT PRN. SPOKE WITH RT, RT REPORTS CRITICAL VALUES ON ABG. CALLED PBX, PBX REPORTS SHE WILL PAGE DR GAITAN AT [phone].
[2019-09-16 09:04] VITALS: BP 110/67
--- NOTE | 2019-09-16 09:13 | NUR ---
CALLED PBX AND PAGED DR GAITAN AGAIN.
[2019-09-16] MEDS: FAMOTIDINE (10MG/ML) 2ML VL IV SCH (09:31)
[2019-09-16] MEDS: CARVEDILOL 3.125 MG TAB PO SCH ×2 (09:31→17:52)
[2019-09-16] MEDS: Glucerna Carbsteady SHAKE Vanilla 8oz PO SCH ×3 (09:31→17:52)
[2019-09-16] MEDS: predniSONE 20 MG TAB PO SCH (09:32)
[2019-09-16] MEDS: FUROSEMIDE 20 MG TAB PO SCH (09:32)
[2019-09-16] MEDS: THIAMINE HCL 100 MG TAB PO SCH (09:32)
[2019-09-16] MEDS: LEVOFLOXACIN 250 MG TAB PO SCH (09:33)
[2019-09-16] MEDS ORDERED: FUROSEMIDE 20 MG TAB PO SCH (10:00)
--- NOTE | 2019-09-16 10:00 | NUR ---
WOUND CARE NOTE: IN TO SEE PATIENT FOR SKIN INTEGRITY AT THIS TIME. PATIENT NOW HAS GLENNA SCORE OF 19. PATIENT IS NOW ABLE TO SELF TURN/REPOSITION SELF/AMBULATE. PATIENT'S SKIN CONTINUES TO BE CLEAR, NO WOUNDS NOTED. ALL BONY PROMINENCES ARE PINK, BLANCHABLE. WILL D/C AIR BED AT THIS TIME. NO FURTHER WOUND CARE MONITORING IS NEEDED AT THIS TIME.
[2019-09-16 10:53] LABS: Calcium 8.1 mg/dL (8.5-10.1); Magnesium 2.1 mg/dL (1.6-2.6); Potassium 4.1 mmol/L (3.5-5.1)
[2019-09-16 10:57] LABS: BUN/Creatinine Ratio 24.6; Bilirubin, Total 2.1 mg/dL (0.2-1.0); Total Protein 5.6 g/dL (6.4-8.2)
--- NOTE | 2019-09-16 11:12 | NUR ---
Spoke with Dr Lynch and reported critical ABG values, MD aware. new orders for BIPAP at night. reports she already spoke with Dr Benavides. Dr. Benavides aware.
[2019-09-16] MEDS ORDERED: FAMOTIDINE 20 MG TAB PO ONE (12:30)
[2019-09-16 13:00] VITALS: BP 97/57
--- NOTE | 2019-09-16 16:36 | NUR ---
Discharge planning per SS consult, patient has orders for home 02 and a Bipap machine. Referral sent to [facility], placed a follow up call, spoke with [facility] and was advised that they will deliver DME to patient on 09.17.19.
[2019-09-16 17:01] VITALS: BP 152/95
[2019-09-16 21:47] VITALS: BP 121/76
[2019-09-16] MEDS: FAMOTIDINE 20 MG TAB PO SCH (21:57)
[2019-09-17] MEDS: IPRATROPIUM BROM 0.5 MG/2.5ML INH SOL NEB SCH ×4 (02:11→14:24)
[2019-09-17] MEDS: ALBUTEROL SULF 2.5 MG/0.5ML(0.5%) NEB SOLN NEB SCH ×4 (02:11→14:24)
[2019-09-17 05:13] VITALS: BP 141/74
[2019-09-17 06:14] LABS: Basophils # (auto) 0 uL; Eosinophils # (auto) 0.2 uL; Hemoglobin 13.1 g/dL (13.5-17.5); Lymphocytes # (auto) 0.6 uL; Monocytes # (auto) 0.5 uL
[2019-09-17 06:21] LABS: Basophils % (auto) 0.2 % (0.0-2.0); Eosinophils % (auto) 3.2 % (0.0-7.0); Hematocrit 38.3 % (41.0-53.0); Lymphocytes % (auto) 9.7 % (10.0-50.0); Mean Corpuscular Hemoglobin 35.8 pg (28.0-32.0); Mean Corpuscular Hgb Conc. 34.2 g/dL (32.0-36.0); Mean Corpuscular Volume 104.8 fL (80.0-100.0); Monocytes % (auto) 9.4 % (0.0-12.0); Neutrophils # (auto) 4.5 uL; Neutrophils % (auto) 77.5 % (37.0-80.0); Nucleated Red Blood Cells % 0.1 %; Platelet Count (auto) 43 10^3/uL (140-450); Red Blood Cells 3.65 10^6/uL (4.5-5.90); Red Cell Distribution Width 13.3 % (11.8-14.3); White Blood Cell 5.8 10^3/uL (4.4-10.8)
[2019-09-17 06:32] LABS: Potassium 4.1 mmol/L (3.5-5.1)
[2019-09-17 09:00] VITALS: BP 154/81
[2019-09-17] MEDS: LEVOFLOXACIN 250 MG TAB PO SCH (11:22)
[2019-09-17] MEDS: FUROSEMIDE 20 MG TAB PO SCH (11:23)
[2019-09-17] MEDS: THIAMINE HCL 100 MG TAB PO SCH (11:23)
[2019-09-17] MEDS: predniSONE 20 MG TAB PO SCH (11:23)
[2019-09-17] MEDS: CARVEDILOL 3.125 MG TAB PO SCH (11:24)
[2019-09-17] MEDS: FAMOTIDINE 20 MG TAB PO SCH (11:24)
[2019-09-17] MEDS: Glucerna Carbsteady SHAKE Vanilla 8oz PO SCH ×2 (11:25→11:26)
--- NOTE | 2019-09-17 12:30 | NUR ---
CALLED [facility], NOTE READ, CALLED AND LEFT MESSAGE INQUIRING ABOUT OXYGEN FOR TRANSPORT HOME. WANTED TO KNOW IF O2 BEING DELIVERED TO HOSPITAL. AWAITING CALL BACK.
[2019-09-17] MEDS ORDERED: CAR3125T PO (12:55)
[2019-09-17] MEDS ORDERED: PANT40TA2 PO (12:55)
[2019-09-17] MEDS ORDERED: FUR20T PO (12:55)
[2019-09-17] MEDS ORDERED: LEVO250T69 PO (12:55)
[2019-09-17 13:00] VITALS: BP 120/72
[2019-09-17] MEDS ORDERED: ALBUAER3 IN (13:04)
--- NOTE | 2019-09-17 13:55 | NUR ---
CALLED SS AGAIN TO INQUIRE ABOUT HOME O2. NO ANSWER LEFT ANOTHER MESSAGE. AWAITING CALL BACK.
--- NOTE | 2019-09-17 16:06 | NUR ---
SPOKE WITH SS, SHE REPORTS [facility] WILL BE HERE AT 1900 TO IGNITER ASSEMBLER PATIENT AND TRANSPORT HER HOME WITH 02. Addendum: 09/17/19 at 1616 by CHLOE RODRIGUEZ RN WRONG PATIENT
--- NOTE | 2019-09-17 16:13 | NUR ---
SPOKE WITH SS, DME FOR BIPAP AND 02 WILL BE DELIVERED TONIGHT. O2 TANK DELIVERED TO PATIENT ROOM. SS REPORTS PT IF CLEAR TO DISCHARGE.
[2019-09-17 16:18] VITALS: BP 120/72
[2019-09-17 17:18] VITALS: BP 155/81
--- NOTE | 2019-09-17 18:00 | NUR ---
Discharge instructions given as ordered. Encourage to follow up with PMD as instructed. All questions and concerns addressed. Patient verbalized understanding. Medication reconciliation form completed and copy given to patient. Medications filled in [facility] and given to patient. Oxygen delivered to bedside for home transport. IV removed with catheter intact, pressure dressing applied. Telemetry unit returned to ICU. Patient taken to vehicle via wheelchair with all personal belongings, accompanied by staff and family member. No distress noted at time of departure.
--- NOTE | 2019-09-17 18:58 | NUR ---
Discharge planning per consult, patient has orders for home 02 at 4LPM, and a BiPap at 16/6. Referral was sent to [facility]. Portable oxygen was delivered at bedside today. Concentrator and BiPap will be delivered to patient's sons house where patient will be at [address] [facility] [address]. His son Arie [phone] will be at the home address to receive DME. Updated address and phone information was provided to [facility]. Nurse Marcum was advised of dc plan. Addendum: 09/17/19 at 1904 by [facility] WILLIS Amended: Links added.
== END 2019-09-17 18:00 | disposition home health service (06) | DRG 720 ==
LOC: EDBD 05:14 → ER 05:14 → OVERFLOW 05:15 → ICU WEST 10:08 → DOU IN ICU 09-11 05:05 → WEST WING 09-14 11:35 → TELE-WESTW 09-14 16:44
PROVIDERS: ADMIT Nurse Practitioner Acute Care; ATTEND Internal Medicine
PROC: 5A1955Z Respiratory Ventilation, Greater than 96 Consecutive Hours (ICD-10-PCS; 2019-09-06)
PROC: 02HV33Z Insertion of Infusion Device into Superior Vena Cava, Percutaneous Approach (ICD-10-PCS; 2019-09-06)
PROC: 0BH17EZ Insertion of Endotracheal Airway into Trachea, Via Natural or Artificial Opening (ICD-10-PCS; 2019-09-06)
PROC: 0B9D8ZX Drainage of Right Middle Lung Lobe, Via Natural or Artificial Opening Endoscopic, Diagnostic (ICD-10-PCS; 2019-09-09)
PROC: 0BD38ZX Extraction of Right Main Bronchus, Via Natural or Artificial Opening Endoscopic, Diagnostic (ICD-10-PCS; 2019-09-09)
PROC: 4A023N7 Measurement of Cardiac Sampling and Pressure, Left Heart, Percutaneous Approach (ICD-10-PCS; principal; 2019-09-15)
PROC: B2111ZZ Fluoroscopy of Multiple Coronary Arteries using Low Osmolar Contrast (ICD-10-PCS; 2019-09-15)
PROC: B2151ZZ Fluoroscopy of Left Heart using Low Osmolar Contrast (ICD-10-PCS; 2019-09-15)
PROC: B41C1ZZ Fluoroscopy of Pelvic Arteries using Low Osmolar Contrast (ICD-10-PCS; 2019-09-15)
PROC: 5A09357 Assistance with Respiratory Ventilation, Less than 24 Consecutive Hours, Continuous Positive Airway Pressure (ICD-10-PCS; 2019-09-16)
DX: A41.1 Sepsis due to other specified staphylococcus (principal); N17.0 Acute kidney failure with tubular necrosis; J96.21 Acute and chronic respiratory failure with hypoxia; I21.A1 Myocardial infarction type 2; R65.21 Severe sepsis with septic shock; E43 Unspecified severe protein-calorie malnutrition; J18.1 Lobar pneumonia, unspecified organism; G93.41 Metabolic encephalopathy; J91.8 Pleural effusion in other conditions classified elsewhere; Z99.11 Dependence on respirator [ventilator] status; I50.43 Acute on chronic combined systolic (congestive) and diastolic (congestive) heart failure; D68.9 Coagulation defect, unspecified; L03.116 Cellulitis of left lower limb; L03.115 Cellulitis of right lower limb; E87.1 Hypo-osmolality and hyponatremia; E87.5 Hyperkalemia; J44.1 Chronic obstructive pulmonary disease with (acute) exacerbation; J96.22 Acute and chronic respiratory failure with hypercapnia; D69.6 Thrombocytopenia, unspecified; I13.0 Hypertensive heart and chronic kidney disease with heart failure and stage 1 through stage 4 chronic kidney disease, or unspecified chronic kidney disease; N18.3 Chronic kidney disease, stage 3 (moderate); D64.9 Anemia, unspecified; E66.01 Morbid (severe) obesity due to excess calories; B96.20 Unspecified Escherichia coli [E. coli] as the cause of diseases classified elsewhere; F10.10 Alcohol abuse, uncomplicated; S81.801A Unspecified open wound, right lower leg, initial encounter; X58.XXXA Exposure to other specified factors, initial encounter; J44.0 Chronic obstructive pulmonary disease with (acute) lower respiratory infection; R73.9 Hyperglycemia, unspecified; Z16.11 Resistance to penicillins; Z68.42 Body mass index [BMI] 45.0-49.9, adult; Z83.3 Family history of diabetes mellitus; Z86.73 Personal history of transient ischemic attack (TIA), and cerebral infarction without residual deficits; Z71.6 Tobacco abuse counseling; Y93.89 Activity, other specified; Y92.89 Other specified places as the place of occurrence of the external cause; Y99.8 Other external cause status
CPT/HCPCS: 31500; 31623; 31624; 36415; 36556; 36600; 70450; 71045; 71260; 74177; 75710; 80048; 80053; 80061; 80202; 80307; 80320; 81001; 82533; 82553; 82805; 82962; 83036; 83605; 83735; 83880; 83930; 83935; 84300; 84443; 84484; 85007; 85025; 85027; 85379; 85384; 85610; 85730; 86850; 86900; 86901; 87040; 87070; 87077; 87081; 87086; 87186; 87205; 92610; 93005; 93306; 93458; 93970; 94002; 94003; 94640; 94660; 96361; 96365; 96372; 96375; 97110; 97116; 97530; 99152; 99291; G0378; J0171; J0330; J0610; J1815; J2185; J2250; J2543; J2704; J3490; J7060